=== PATIENT | male | born 1980 | race Caucasian/White ===

== ENCOUNTER 2019-11-04 11:07 | Inpatient (IN) ==
--- NOTE | 2019-11-04 11:38 | Emergency Department Note ---
Impression & Plan Suicide attempt by multiple drug overdose, Anxiety ED Provider Note NAME: DAVE MICHELE AGE: 39 SEX: M : 1980 ARRIVES VIA: Walk-In INFORMANT: Patient, ED PROVIDER(S): Kael Garza MD Chief Complaint: Overdose, anxiety HPI: Patient does state he is presenting status post overdose this morning. The patient took approximately 15 to 20 100 mg Zoloft, 30-40 10 mg melatonin, 1 cup of Clorox and Vicks Vapor. The patient states he vomited essentially immediately. The patient states that he vomited after taking all the substances. Patient was also found in his car with the window down in the garage. The car was on. Patient does admit to trying to hurt himself. The patient is not try to hurt himself since 2008. The patient states he had decreased the. Appetite is been okay. The patient denies any alcohol tobacco or substance use. The patient does see Dr. Corona as an outpatient for psych. Th e patient states that he does not have any access to guns or weapons. 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 ROS: See HPI for pertinent positives and negatives. A total of 10 systems were rev iewed and otherwise negative. Past medical history: See below Surgical history: See below Social history: See below Physical Exam: GENERAL: NAD, non-toxic. Wearing a mask, tolerating secretions. EYE EXAM: Normal conjunctiva. PERRL, no anisocoria and EOM's grossly intact w/o pain. NECK: Supple, no nuchal rigidity, no adenopathy, non-tender. No signs of meningismus. LUNGS: Clear to auscultation. Normal chest wall mechanics. HEART: NSR, no MRG. ABDOMEN: Abdomen soft, non-tender, normo-active bowel sounds, no masses, no rebound or guarding. BACK: No CVA TTP. SKIN: No rashes and no bruising. UPPER EXTREMITIES: Upper extremities are grossly normal. LOWER EXTREMITIES: Grossly normal, no edema. NEURO EXAM: A&O x3, cranial nerves II-XII grossly intact, normal speech, moves all 4 extremities on command w/o issue. Differential diagnoses: Mood disorder, infection, hypoglycemia, electrolyte abnormalities, cardiac sources, intracerebral event, toxicologic, trauma, neurologic, as well as other pathologies. Overdose, toxicologic, infection, hypoglycemia, electrolyte abnormalities, cardiac sources, intracerebral event, neurologic, trauma, as well as other pathologies. Course: Patient was seen and evaluated the bedside. Full history and physical exam was performed. EKG: Indication: Overdose Normal sinus rhythm, rate of 86, normal intervals, normal axis, no obvious arrhythmia. T wave version lead III no ST changes. No significant change from 02/18/2009. Imaging Studies: None Cardiac monitoring: An order was placed for continuous cardiac monitoring. The monitor shows a rate of 96 with sinus rhythm. MDM: Patient does present status post overdose. The patient states he did all this around 830 this morning. Patient states he ingested substances and subsequently vomited. The patient denies any shortness of breath. The patient is awake alert tolerating his secretions and following commands. Patient did have blood work completed along with a carboxyhemoglobin. Of note the patient is not complaining of shortness of breath nonrebreather was not placed at this time especially given 2 hours after onset. The patient is non-stridulous. Patient is handling secretions. Patient had ingested some household bleach but he immediately vomited this. Poison control was contacted. Obs for 6 hours post ingestion to observe for aspiration. If symptoms, consider CXR. Vicks Vapor has essential oils and camphor per poison control, may cause n/v, seizures. Same 4-6 hours obs period. I did speak with the on-call psych case management rn and came to evaluate the patient. Patient did undergo a 6-hour observation post ingestion. Blood work shows normal white count H&H and platelet count. Kidney function is unremarkable. T bili is mildly elevated 1.3 but the patient has no signs of jaundice right upper quadrant pain. Patient does have UDS positive for benzos. Alcohol salicylate Tylenol within normal limits. Patient's carboxyhemoglobin is not elevated. Not requiring nonrebreather. Patient was subsequently admitted to the inpatient psychiatric service. Observation: Patient has PMX of depression and anxiety w/ no pertinent family history . Observation began at 1134 and was necessary in order to rule out, monitor, reassess and mitigate the risk of the patient, ensure their relative safety, and potentially avoid an admission. Upon re-evaluation, observation revealed that the patient could be safely admitted at this time after observation in the emergency department status post ingestion. Patient was feeling well and discharged from observation at 1330. 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 [employer] Feels Safe at Home: Yes Smoking Status: Never smoker Allergies Allergies Allergy/AdvReac Type Severity Reaction Status Date / Time No Known Allergies Allergy Unknown Verified 09/03/05 06:08 Home Meds Home Medications Medication Instructions Recorded Confirmed sertraline [Zoloft] 100 mg PO DAILY 11/04/19 11/04/19 Results & Data (ED) Vital Signs Vital Signs - 24 hr 11/04/19 11:12 11/04/19 11:20 11/04/19 11:47 Temperature 36.3 C L Temperature Source Oral Pulse Rate 96 H Pulse Rate [Left] Pulse Rhythm [Left] Pulse Strength [Left] Respiratory Rate 20 Respiratory Effort / Characteristics Non-Labored Respiratory Depth Normal Respiratory Pattern Regular Blood Pressure 120/86 Blood Pressure [Right Arm] Blood Pressure Mean 97 Blood Pressure Mean [Right Arm] Pulse Oximetry 98 99 Oxygen Delivery Method Room Air Room Air Sepsis Recent Fever Within 48 Hours No Sepsis New/Unexplained Change in Mental Status No Sepsis Action Taken by Nursing No Action Required 11/04/19 11:58 11/04/19 13:44 Temperature Temperature Source Pulse Rate Pulse Rate [Left] 89 88 Pulse Rhythm [Left] Regular Regular Pulse Strength [Left] Normal Respiratory Rate 18 18 Respiratory Effort / Characteristics Non-Labored Non-Labored Respiratory Depth Normal Normal Respiratory Pattern Regular Regular Blood Pressure Blood Pressure [Right Arm] 122/89 125/89 Blood Pressure Mean Blood Pressure Mean [Right Arm] 100 101 Pulse Oximetry 99 98 Oxygen Delivery Method Room Air Room Air Sepsis Recent Fever Within 48 Hours Sepsis New/Unexplained Change in Mental Status Sepsis Action Taken by Assisted Medications Current Medication List: was personally reviewed by me Laboratory Data Attestation: I reviewed the patient's lab results. Result diagrams: 11/04/19 11:43 11/04/19 11:43 Lab Results 11/04/19 11/04/19 11/04/19 Range/Units 11:40 11:40 11:43 WBC 9.43 (4.8-10.8) K/uL RBC 4.81 (4.7-6.1) M/uL Hgb 15.2 (14.0-18.0) g/dL Hct 43.7 (42-52) % MCV 90.9 (80-100) fL MCH 31.6 (25-34) pg MCHC 34.8 (32-36) g/dL RDW Std Deviation 40.6 (36.4-46.3) fL RDW Coeff of Chloé 12.2 (11.5-14.5) % Plt Count 272 (130-400) K/uL MPV 10.8 H (7.4-10.4) fL Immature Gran % (Auto) 0.1 % Neut % (Auto) 86.8 % Lymph % (Auto) 7.1 % Fountain % (Auto) 5.6 % Eos % (Auto) 0.0 % Baso % (Auto) 0.4 % Immature Gran # (Auto) 0.01 (0.00-0.02) K/uL Neut # (Auto) 8.18 H (1.4-6.5) K/uL Lymph # (Auto) 0.67 L (1.2-3.4) K/uL Fountain # (Auto) 0.53 (0.11-0.59) K/uL Eos # (Auto) 0.00 (0-0.5) K/uL Baso # (Auto) 0.04 (0-0.2) K/uL Carboxyhemoglobin % THgb Sodium (136-145) mmol/L Potassium (3.5-5.1) mmol/L Chloride (98-107) mmol/L Carbon Dioxide (21-32) mmol/L Anion Gap (3-11) BUN (7-18) mg/dl Creatinine (0.6-1.4) mg/dl Est Cr Clr Drug Dosing ml/min Est GFR ( Amer) Est GFR (Non-Af Amer) BUN/Creatinine Ratio (10-20) Glucose (70-99) mg/dl Calcium (8.5-10.1) mg/dl Phosphorus (2.5-4.9) mg/dl Magnesium (1.8-2.4) mg/dl Total Bilirubin (0.2-1) mg/dl AST (15-37) U/L ALT (12-78) U/L Alkaline Phosphatase (45-117) U/L Total Protein (6.4-8.2) gm/dl Albumin (3.4-5.0) gm/dl Globulin (2.5-4.0) gm/dl Albumin/Globulin Ratio (0.9-2) TSH (0.300-4.500) uIu/ml Urine Color Dark Yellow Urine Appearance Clear (Clear) Urine pH 5.5 (4.5-7.5) Ur Specific [place] 1.038 H (1.000-1.030) Urine Protein Negative (Negative) Urine Glucose (UA) Negative (Negative) Urine Ketones 1+ H (Negative) Urine Blood Negative (Negative) Urine Nitrite Negative (Negative) Urine Bilirubin Negative (Negative) Urine Urobilinogen Negative (Negative) Ur Leukocyte Esterase Negative (Negative) Salicylates (2.8-20) mg/dl Urine Opiates Screen Neg (Neg) Ur Methadone, Qual Neg (Neg) Acetaminophen (10-30) ug/ml Urine Barbiturates Neg (Neg) Ur Phencyclidine (PCP) Neg (Neg) U Amphetamin/Meth Scrn Neg (Neg) MDMA (Ecstasy) Screen Neg (Neg) U Benzodiazepines Scrn Pos H (Neg) Ur Cocaine Metabolite Neg (Neg) U Marijuana (THC) Screen Neg (Neg) Ethyl Alcohol mg/dL (0-3) mg/dl 11/04/19 11/04/19 11/04/19 Range/Units 11:43 11:43 11:43 WBC (4.8-10.8) K/uL RBC (4.7-6.1) M/uL Hgb (14.0-18.0) g/dL Hct (42-52) % MCV (80-100) fL MCH (25-34) pg MCHC (32-36) g/dL RDW Std Deviation (36.4-46.3) fL RDW Coeff of Chloé (11.5-14.5) % Plt Count (130-400) K/uL MPV (7.4-10.4) fL Immature Gran % (Auto) % Neut % (Auto) % Lymph % (Auto) % [place] % (Auto) % Eos % (Auto) % Baso % (Auto) % Immature Gran # (Auto) (0.00-0.02) K/uL Neut # (Auto) (1.4-6.5) K/uL Lymph # (Auto) (1.2-3.4) K/uL Fountain # (Auto) (0.11-0.59) K/uL Eos # (Auto) (0-0.5) K/uL Baso # (Auto) (0-0.2) K/uL Carboxyhemoglobin % THgb Sodium 139 (136-145) mmol/L Potassium 4.0 (3.5-5.1) mmol/L Chloride 106 (98-107) mmol/L Carbon Dioxide 26 (21-32) mmol/L Anion Gap 7.0 (3-11) BUN 16 (7-18) mg/dl Creatinine 0.93 (0.6-1.4) mg/dl Est Cr Clr Drug Dosing 113.6 ml/min Est GFR ( Amer) 119.4 Est GFR (Non-Af Amer) 103.0 BUN/Creatinine Ratio 16.8 (10-20) Glucose 121 H (70-99) mg/dl Calcium 9.1 (8.5-10.1) mg/dl Phosphorus 3.1 (2.5-4.9) mg/dl Magnesium 2.0 (1.8-2.4) mg/dl Total Bilirubin 1.3 H (0.2-1) mg/dl AST 18 (15-37) U/L ALT 24 (12-78) U/L Alkaline Phosphatase 79 (45-117) U/L Total Protein 8.1 (6.4-8.2) gm/dl Albumin 4.7 (3.4-5.0) gm/dl Globulin 3.4 (2.5-4.0) gm/dl Albumin/Globulin Ratio 1.4 (0.9-2) TSH 0.699 (0.300-4.500) uIu/ml Urine Color Urine Appearance (Clear) Urine pH (4.5-7.5) Ur Specific [place] (1.000-1.030) Urine Protein (Negative) Urine Glucose (UA) (Negative) Urine Ketones (Negative) Urine Blood (Negative) Urine Nitrite (Negative) Urine Bilirubin (Negative) Urine Urobilinogen (Negative) Ur Leukocyte Esterase (Negative) Salicylates < 1.7 L (2.8-20) mg/dl Urine Opiates Screen (Neg) Ur Methadone, Qual (Neg) Acetaminophen < 2 L (10-30) ug/ml Urine Barbiturates (Neg) Ur Phencyclidine (PCP) (Neg) U Amphetamin/Meth Scrn (Neg) MDMA (Ecstasy) Screen (Neg) U Benzodiazepines Scrn (Neg) Ur Cocaine Metabolite (Neg) U Marijuana (THC) Screen (Neg) Ethyl Alcohol mg/dL < 3.0 (0-3) mg/dl 11/04/19 Range/Units 11:43 WBC (4.8-10.8) K/uL RBC (4.7-6.1) M/uL Hgb (14.0-18.0) g/dL Hct (42-52) % MCV (80-100) fL MCH (25-34) pg MCHC (32-36) g/dL RDW Std Deviation (36.4-46.3) fL RDW Coeff of Chloé (11.5-14.5) % Plt Count (130-400) K/uL MPV (7.4-10.4) fL Immature Gran % (Auto) % Neut % (Auto) % Lymph % (Auto) % [place] % (Auto) % Eos % (Auto) % Baso % (Auto) % Immature Gran # (Auto) (0.00-0.02) K/uL Neut # (Auto) (1.4-6.5) K/uL Lymph # (Auto) (1.2-3.4) K/uL [place] # (Auto) (0.11-0.59) K/uL Eos # (Auto) (0-0.5) K/uL Baso # (Auto) (0-0.2) K/uL Carboxyhemoglobin 0.3 % THgb Sodium (136-145) mmol/L Potassium (3.5-5.1) mmol/L Chloride (98-107) mmol/L Carbon Dioxide (21-32) mmol/L Anion Gap (3-11) BUN (7-18) mg/dl Creatinine (0.6-1.4) mg/dl Est Cr Clr Drug Dosing ml/min Est GFR ( Amer) Est GFR (Non-Af Amer) BUN/Creatinine Ratio (10-20) Glucose (70-99) mg/dl Calcium (8.5-10.1) mg/dl Phosphorus (2.5-4.9) mg/dl Magnesium (1.8-2.4) mg/dl Total Bilirubin (0.2-1) mg/dl AST (15-37) U/L ALT (12-78) U/L Alkaline Phosphatase (45-117) U/L Total Protein (6.4-8.2) gm/dl Albumin (3.4-5.0) gm/dl Globulin (2.5-4.0) gm/dl Albumin/Globulin Ratio (0.9-2) TSH (0.300-4.500) uIu/ml Urine Color Urine Appearance (Clear) Urine pH (4.5-7.5) Ur Specific [place] (1.000-1.030) Urine Protein (Negative) Urine Glucose (UA) (Negative) Urine Ketones (Negative) Urine Blood (Negative) Urine Nitrite (Negative) Urine Bilirubin (Negative) Urine Urobilinogen (Negative) Ur Leukocyte Esterase (Negative) Salicylates (2.8-20) mg/dl Urine Opiates Screen (Neg) Ur Methadone, Qual (Neg) Acetaminophen (10-30) ug/ml Urine Barbiturates (Neg) Ur Phencyclidine (PCP) (Neg) U Amphetamin/Meth Scrn (Neg) MDMA (Ecstasy) Screen (Neg) U Benzodiazepines Scrn (Neg) Ur Cocaine Metabolite (Neg) U Marijuana (THC) Screen (Neg) Ethyl Alcohol mg/dL (0-3) mg/dl Administered Medications Discontinued Medications Ondansetron HCl (Zofran Odt) 4 mg PO NOW STA Stop: 11/04/19 13:19 Last Admin: 11/04/19 13:26 Dose: 4 mg Documented by: [id number] Blood Pressure Blood Pressure Findings: Normal blood pressure Discharge Plan Visit Data *Final* Discharge Date/Time: 11/04/19 15:31 Chief Complaint: Overdose (Intentional) Stated Complaint: OVERDOSED ON ZOLOFT,MELATONIN,CLOROX,CAR EXHAUST ED Provider: Kael Garza Discharge Problem: Suicide attempt by multiple drug overdose, Anxiety Patient Disposition: Admitted As Inpatient Discharge Instructions Interventions: ED Discharge Assessment Last Done: 11/04/19 15:31 Discharge Problem: Suicide attempt by multiple drug overdose Qualifiers: Encounter type: initial encounter Qualified Code(s): T50.912A - Poisoning by multiple unspecified drugs, medicaments and biological substances, intentional self-harm, initial encounter
[2019-11-04 12:02] LABS: Basophils # (auto) 0.04 K/uL (0-0.2); Basophils % (auto) 0.4 %; Hematocrit (blood only) 43.7 % (42-52); Hemoglobin 15.2 g/dL (14.0-18.0); Immature Granulocytes # (auto) 0.01 K/uL (0.00-0.02); Immature Granulocytes % (auto) 0.1 %; Lymphocytes # (auto) 0.67 K/uL (1.2-3.4); Lymphocytes % (auto) 7.1 %; Mean Corpuscular Hemoglobin 31.6 pg (25-34); Mean Corpuscular Hgb Conc 34.8 g/dL (32-36); Mean Corpuscular Volume 90.9 fL (80-100); Mean Platelet Volume 10.8 fL (7.4-10.4); Monocytes # (auto) 0.53 K/uL (0.11-0.59); Monocytes % (auto) 5.6 %; Neutrophils # (auto) 8.18 K/uL (1.4-6.5); Neutrophils % (auto) 86.8 %; Platelet Count 272 K/uL (130-400); RDW Coefficient of Variation 12.2 % (11.5-14.5); RDW Standard Deviation 40.6 fL (36.4-46.3); Red Blood Count 4.81 M/uL (4.7-6.1); White Blood Count 9.43 K/uL (4.8-10.8)
[2019-11-04 12:23] LABS: Albumin Level 4.7 gm/dl (3.4-5.0); BUN Creatinine Ratio 16.8 (10-20); Calcium 9.1 mg/dl (8.5-10.1); Creatinine Clr Calc Pharmacy 113.6 ml/min; Est GFR (African American) 119.4
[2019-11-04 12:34] LABS: Albumin Globulin Ratio 1.4 (0.9-2); Bilirubin,Total 1.3 mg/dl (0.2-1); Globulin 3.4 gm/dl (2.5-4.0); Phosphorus 3.1 mg/dl (2.5-4.9); Thyroid Stimulating Hormone 0.699 uIu/ml (0.300-4.500); Total Protein 8.1 gm/dl (6.4-8.2)
[2019-11-04 12:37] LABS: Appearance Urine Clear (Clear); Bilirubin Urine Negative (Negative); Blood Urine Negative (Negative); Color Urine Dark Yellow; Glucose Urine UA Negative (Negative); Ketones Urine 1+ (Negative); Leukocyte Esterase Urine Negative (Negative); Nitrite Urine Negative (Negative); Protein Urine Negative (Negative); Specific Gravity Urine 1.038 (1.000-1.030); Urobilinogen Urine Negative (Negative); pH Urine 5.5 (4.5-7.5)
[2019-11-04 12:38] LABS: Acetaminophen < 2 ug/ml (10-30)
[2019-11-04 12:57] LABS: Salicylate < 1.7 mg/dl (2.8-20)
[2019-11-04 13:16] LABS: Amphetamines+Metham, Urine Neg (Neg); Barbiturates, Urine Neg (Neg); Benzodiazepine, Urine Pos (Neg); Cocaine, Urine Neg (Neg); MDMA (Ecstacy), Urine Neg (Neg); Methadone, Urine Neg (Neg); Opiate, Urine Neg (Neg); Phencyclidine, Urine Neg (Neg)
[2019-11-04] MEDS ORDERED: ONDANSETRON 4 MG OD TAB PO STA (13:18)
[2019-11-04 13:45] VITALS: O2SAT 98
--- NOTE | 2019-11-04 13:57 | Electrocardiogram Report ---
Test Reason : Blood Pressure : / mmHG Vent. Rate : 086 BPM Atrial Rate : 086 BPM P-R Int : 168 ms QRS Dur : 102 ms QT Int : 344 ms P-R-T Axes : 040 037 015 degrees QTc Int : 411 ms Normal sinus rhythm Normal ECG When compared with ECG of 18-NOV-2008 08:55, No significant change was found Confirmed by Shekhar Malin ([id number]) on 11/04/2019 1:57:06 PM Referred By: REFERRED SELF Confirmed By:Shekhar Malin
[2019-11-04] MEDS ORDERED: MAGNESIUM HYDROXIDE SUSP 30 ML UDC PO PRN (14:12)
[2019-11-04] MEDS ORDERED: BISMUTH SUBSALICYLATE PER ML OMNICELL CHARGE PO PRN (14:12)
[2019-11-04] MEDS ORDERED: ALUMINUM/MAGNESIUM SUSP 30 ML UDC PO PRN (14:12)
[2019-11-04] MEDS ORDERED: ACETAMINOPHEN 325 MG TAB PO PRN (14:12)
[2019-11-04] MEDS ORDERED: SODIUM CHLORIDE 0.65% NA SOLN 45 ML (OCEAN) PRN (14:12)
--- NOTE | 2019-11-05 09:44 | History & Physical ---
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 His symptoms have worsened over the past month, triggered by the coronavirus pandemic and resulting restrictions/societal changes. He struggles with loss of routine and uncertainty, and although symptoms had been worsening steadily for the past month, he did not contact the outpatient clinic or seek out psychotherapy. He reports feeling that he should have been able to deal with it himself, and has placed a lot of pressure on himself to handle his symptoms on his own. His sertraline is being held due to overdose with ongoing GI effects, but will resume it tomorrow with a plan to titrate to an effective (likely higher) dose. He will also need a family meeting with his , and referral for individual psychotherapy. Inpatient treatment is medically necessary due to the severity of his symptoms and risk for suicide if discharged. (1) Suicide attempt by multiple drug overdose: 11/04 -patient remains slightly tachycardic, although EKG on presentation was normal. Continue to monitor and encourage fluids. -Patient was able to tolerate food today, but has mild nausea. Continue to hold sertraline. -UDS positive for benzodiazepines, but he denies taking benzodiazepines, and has not been prescribed them per PDMP. Follow-up on confirmatory results when available. -Continue to explore the evolution of his symptoms that led to his suicide attempt, to assist in developing coping strategies and safety plan. -Family meeting with . Encounter type: initial encounter Qualified Code(s): T50.912A - Poisoning by multiple unspecified drugs, medicaments and biological substances, intentional self-harm, initial encounter (2) Depression: 11/04 -sertraline has been effective in the past, so will resume it tomorrow, providing nausea has resolved. Will start with 50 mg daily, and titrate to a goal dose of 150 or 200 mg daily. -Encourage patient to attend and participate in groups and therapy, work on healthy coping skills and discharge safety plan. -Refer for individual psychotherapy; he has seen multiple therapists at some point in the past, and will think about his preferences (whether he would like to return to a previous therapist or see someone new). -Patient reports benefit from routine, and has made efforts to maintain a structured schedule at home. Continue to explore this is part of discharge planning. -Offer hydroxyzine as needed for sleep. Depression Type: major depressive disorder Major depression recurrence: recurrent Active/Remission status: currently active Major depression episode severity: severe Psychotic features: without psychotic features Qualified Code(s): F33.2 - Major depressive disorder, recurrent severe without psychotic features (3) Anxiety: 11/04 -resume SSRI as above. Offer hydroxyzine as needed. Work on behavioral techniques for managing anxiety. 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 Chief Complaint " Not great". History of Present Illness Patient is well-known to me as I have been seeing him in the outpatient clinic since 2012. He has a history of severe recurrent depression starting when he was a freshman in college, with episodes of depression typically occurring during life transitions. He has a history of suicide attempts and hospitali zations, last in 2008. His depression has been in remission for about the past 10 years, so in 2017 he was tapered off of oxcarbazepine, and continued on sertraline 100 mg daily. We were considering tapering him off the sertraline as well this spring, but at his last appointment 1 month ago, he reported a slight increase in anxiety due to the coronavirus pandemic, so the SSRI was continued for the time being. He has not been in therapy for years, due to symptom remission. His called the outpatient clinic yesterday reporting that he had overdosed in a suicide attempt, and was directed to take him to the ER immediately. He presented to the ER and reported an intentional overdose around 8:30 AM on 15-20 sertraline 100 mg tabs, 30-40 melatonin 10 mg tabs, and approximately 1 cup of C lorox and Vicks vapor. He vomited immediately after the ingestion, and then went and sat in his car in a closed garage with the engine on in another attempt to harm himself. EKG was normal sinus rhythm, rate 86, and he had continuous cardiac monitoring in the ER. Poison control was contacted and recommended observation for 6 hours to monitor for aspiration, nausea and vomiting, or seizures. He has had episodic mild tachycardia. CBC, CMP, and TSH were unremarkable. UA notable for elevated specific gravity and 1+ ketones, and UDS positive for benzodiazepines, although he denied ingesting benzodiazepines. Per PDMP, he has no history of feeling any controlled substances. He reported worsening depression since the coronavirus pandemic and associated restrictions. He is been worrying about possibly losing his job at [employer], a sense of dread about what the future holds, racing thoughts, and poor sleep. He reported having thoughts of suicide but felt able to manage them until the morning of his overdose, when he woke up and had racing, obsessive thoughts and impulsively took the overdose and then attempted carbon monoxide poisoning to end his life. He said he was sitting in his car for approximately 30 minutes before his and son found him. He denied any substance use other than the overdose. He agreed to voluntary hospitalization. On my assessment, he reports mood and anxiety have worsened over the past month, exacerbated by his realization that all of the changes related to the pandemic will likely continue for some time, and uncertainty about the future/concerns about job security. His sleep has been disrupted, waking up feeling anxious with a sense of dread, and he has lost approximately 15 pounds. He endorses feelings of guilt, as he does not feel he should be struggling, and due to attempting suicide, which he states he promised his he would never do again. He reports sad mood, rumination, racing obsessive thoughts, increasingly negative thoughts "everything is pessimistic," and constant sense of anxiety "about what's going on in the world," and morning the loss of "normal life." He says he realized about 2 weeks ago that he was depressed, talked to his about it, and said he "really wanted to fight it, I know everyone else is dealing with this too." He started having fleeting suicidal thoughts over the past 2 weeks, but denies he had any plan or intent to act on these thoughts. Yesterday morning he says he woke up and "I couldn't handle it, couldn't deal with his uncertainty," so took the overdose impulsively on the medications he had available. He says he drank the Vicks vapor because it was there, and says he cannot explain why he ingested bleach, other than he had done that in the past as a suicide attempt and "it was just automatic." He states he did not think that he would , but did think that the ingestion might harm him. He thinks that he did it in response to desperate need to escape and feeling "I can't do this anymore." He says he does not know why he then went and sat in his car with the engine running in the closed garage, stating he had never before thought about harming himself this way, but knew a person who from carbon monoxide poisoning. He says the episode now seems "surreal, incredibly dangerous, and not smart." He says "part of me is thankful I am still alive, but the issues are still there." He states he is a person who likes routine, and he and his family had been sticking to a daily routine where he and his both worked from home, shared home schooling duties with her children, they will went for a family walk daily, and were eating healthy meals. He is worried about missing work, stating the semester is ending and his grades are due at the end of next week. He denies symptoms of psychosis and allen. Past Psychiatric History Previous Psych History: Previous diagnoses include recurrent severe depression without psychosis, SHELLEY, and social phobia. History of multiple episodes of depression starting at age 18 when he was a freshman in college. Last episode of depression was approximately 10 years ago. Current Psychiatric Diagnosis: Depression Outpatient Services: Psychiatrist Dr. Corona at [facility] since 2012; prior to that saw Dr. Acosta and DANIELLE Bermudez. No therapist currently. Previously saw Gonzalo Felix and Deniz Spence at [facility] PCP: Dr. Harden Previous Psych Admissions: This is his sixth hospitalization. First hospitalization in 1999 at [facility] 2005 at [facility] after an overdose. 2008 at [facility] after an overdose on Clorox and clonazepam (initially treated in the ICU). Again hospitalized in 2008 at [facility] in [place], for an overdose that occurred immediately upon discharge from the previous hospitalization. He then participated in a 6-week intensive outpatient program in [place]. Do You Have Access To A Gun?: No History of Previous Suicide Attempt: Yes Describe Attempts in the Past: Overdose X2 in 2008 (1 of which required ICU hospitalization); 2 others in 2004, 2005? Past Medication Trials: Oxcarbazepine and sertraline -was on this combination for many years with symptom remission, so oxcarbazepine was discontinued in 2018. Paroxetine ([id number]) Trazodone -caused muscle twitches and bad dreams Clonazepam Past Head Trauma/Neuro History History of Concussion/Seizure: Yes (2 concussions in high school from sports, no loss of consciousness) Allergies Allergy/AdvReac Type Severity Reaction Status Date / Time No Known Allergies Allergy Unknown Verified 09/03/05 06:08 Home Medications Home Medications Medication Instructions Recorded Confirmed Type sertraline [Zoloft] 100 mg PO DAILY 11/04/19 11/04/19 History Family History Family History of: Depression (Father) and Alcoholism/Drug Abuse (Paternal grandfather) Alcohol History Hx of Alcohol Use Over the Past 12 Months: No AUDIT Total Score: 1 Rare alcohol use, no history of abuse/misuse. Per outpatient records, remote incident of his calling 911 after becoming sick while drinking wine, which triggered a CYS investigation. He stated this was an accident and that he has poor tolerance for wine, and it has never recurred. Smoking Use Have You Smoked or Used Tobacco Products in the Last 30 Days: No Smoking Status: Never smoker Substance History Hx of Prescription Med Misuse Over the Past 12 Months: No Hx of Over the Counter Med Misuse Over the Past 12 Months: No Hx of Inhalent Misuse Over the Past 12 Months: No Hx of Organic Substance Use Over the Past 12 Months: No Hx of Illegal Substances/Street Drug Use Over Past 12 Months: No Problems as a Result of Past Substance Use: None Identified Personal History Living Arrangements: Home Living Arrangements Comments: With and children in [place]. Childhood: Raised by both parents near [place]. 1 younger sister. Good relationship with family. Described himself as shy in childhood. 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) Marital Status: Number Of Children: 2 sons Beliefs That Will Affect Care: None Current Legal Problems: No Hx Traumatic Life Events: No Patient History Medical History (Updated 11/05/19 @ 11:24 by Trinidad Corona MD) Anxiety Depression Surgical History (Updated 11/04/19 @ 11:45 by Kael Garza MD) No pertinent past surgical history Social History (Updated 11/04/19 @ 11:45 by Kael Garza MD) Preferred Language: Grenadian Communication Ability: Effective Hearing Ability: Normal Beliefs That Will Affect Care: None marital status: current occupational status: employed 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 Feels Safe at Home: Yes Smoking Status: Never smoker Review of Systems Review of Systems: All systems reviewed & are unremarkable except as noted in HPI & below Mild nausea, but was able to eat breakfast, and no vomiting since yesterday. Mild headache. Physical Exam Psychiatric: Orientation: alert, oriented x 3 and cooperative Apperance: appropriately dressed and appeared stated age Well-nourished well-developed white male appearing his stated age. Dressed in shorts and a T-shirt, wearing glasses. Hair is unkempt and hostile. Seated in no acute distress. Calm and cooperative with the interview. Eye Contact: + fair eye contact Motor Behavior: steady gait and station and no abnormal motor movements Speech: normal rate/rhythm/volume of speech Affect: + depressed affect, + anxious affect, + constricted affect and mood congruent with affect Mood: + depressed mood and + anxious mood Thought Process: goal directed thought process Thought Content: + cognitive distortions, + hopelessness, + worthlessness and + guilt But admits to polysubstance overdose and attempted carbon monoxide poisoning yesterday, and suicidal thoughts for the past 2 weeks. Homicidal Thoughts: denies homicidal thoughts Hallucinations: no auditory hallucinations and no visual hallucinations Cognition: recent memory grossly intact, remote memory grossly intact, attention grossly intact and language grossly intact Estimated Intelligence: consistent with education level Insight: + fair insight Judgement: + fair judgement Vital Signs (Past 24 Hours): Last Vital Signs Temp 36.6 C 11/05/19 06:00 Pulse 109 H 11/05/19 06:39 Resp 18 11/05/19 06:00 BP 124/78 11/05/19 06:39 Pulse Ox 98 11/04/19 16:04 Exam Statement: A physical exam was performed in the ER prior to admission to the unit by Dr. Kael Garza. I accept that physical as correct/medical clearance for the inpatient physical exam. Results & Data ([facility]) Laboratory Results Laboratory Results - last 24 hr 11/04/19 11/04/19 11/04/19 11:40 11:40 11:40 WBC RBC Hgb Hct MCV MCH MCHC RDW Std Deviation RDW Coeff of Chloé Plt Count MPV Immature Gran % (Auto) Neut % (Auto) Lymph % (Auto) [place] % (Auto) Eos % (Auto) Baso % (Auto) Immature Gran # (Auto) Neut # (Auto) Lymph # (Auto) [place] # (Auto) Eos # (Auto) Baso # (Auto) Carboxyhemoglobin Sodium Potassium Chloride Carbon Dioxide Anion Gap BUN Creatinine Est Cr Clr Drug Dosing Est GFR ( Amer) Est GFR (Non-Af Amer) BUN/Creatinine Ratio Glucose Calcium Phosphorus Magnesium Total Bilirubin AST ALT Alkaline Phosphatase Total Protein Albumin Globulin Albumin/Globulin Ratio TSH Urine Color Dark Yellow Urine Appearance Clear Urine pH 5.5 Ur Specific [place] 1.038 H Urine Protein Negative Urine Glucose (UA) Negative Urine Ketones 1+ H Urine Blood Negative Urine Nitrite Negative Urine Bilirubin Negative Urine Urobilinogen Negative Ur Leukocyte Esterase Negative Salicylates Urine Opiates Screen Neg Ur Methadone, Qual Neg Acetaminophen Urine Barbiturates Neg Ur Phencyclidine (PCP) Neg U Amphetamin/Meth Scrn Neg MDMA (Ecstasy) Screen Neg U OH-Alprazolam Confrm Pending U Benzodiazepines Scrn Pos H 7-Amino Clonazepam Pending Ur Nordiazepam Confirm Pending U OH-ethylflurazepam Pending U Lorazepam Cnf GC/MS Pending U Oxazepam Confm GC/MS Pending Ur Temazepam Confirm Pending U OH-Triazolam Confirm Pending U OH-Midazolam Confirm Pending Ur Cocaine Metabolite Neg U Marijuana (THC) Screen Neg Drug Screen Comment Pending Ethyl Alcohol mg/dL 11/04/19 11/04/19 11/04/19 11:43 11:43 11:43 WBC 9.43 RBC 4.81 Hgb 15.2 Hct 43.7 MCV 90.9 MCH 31.6 MCHC 34.8 RDW Std Deviation 40.6 RDW Coeff of Chloé 12.2 Plt Count 272 MPV 10.8 H Immature Gran % (Auto) 0.1 Neut % (Auto) 86.8 Lymph % (Auto) 7.1 [place] % (Auto) 5.6 Eos % (Auto) 0.0 Baso % (Auto) 0.4 Immature Gran # (Auto) 0.01 Neut # (Auto) 8.18 H Lymph # (Auto) 0.67 L [place] # (Auto) 0.53 Eos # (Auto) 0.00 Baso # (Auto) 0.04 Carboxyhemoglobin Sodium 139 Potassium 4.0 Chloride 106 Carbon Dioxide 26 Anion Gap 7.0 BUN 16 Creatinine 0.93 Est Cr Clr Drug Dosing 113.6 Est GFR ( Amer) 119.4 Est GFR (Non-Af Amer) 103.0 BUN/Creatinine Ratio 16.8 Glucose 121 H Calcium 9.1 Phosphorus 3.1 Magnesium 2.0 Total Bilirubin 1.3 H AST 18 ALT 24 Alkaline Phosphatase 79 Total Protein 8.1 Albumin 4.7 Globulin 3.4 Albumin/Globulin Ratio 1.4 TSH 0.699 Urine Color Urine Appearance Urine pH Ur Specific [place] Urine Protein Urine Glucose (UA) Urine Ketones Urine Blood Urine Nitrite Urine Bilirubin Urine Urobilinogen Ur Leukocyte Esterase Salicylates < 1.7 L Urine Opiates Screen Ur Methadone, Qual Acetaminophen < 2 L Urine Barbiturates Ur Phencyclidine (PCP) U Amphetamin/Meth Scrn MDMA (Ecstasy) Screen U OH-Alprazolam Confrm U Benzodiazepines Scrn 7-Amino Clonazepam Ur Nordiazepam Confirm U OH-ethylflurazepam U Lorazepam Cnf GC/MS U Oxazepam Confm GC/MS Ur Temazepam Confirm U OH-Triazolam Confirm U OH-Midazolam Confirm Ur Cocaine Metabolite U Marijuana (THC) Screen Drug Screen Comment Ethyl Alcohol mg/dL 11/04/19 11/04/19 11:43 11:43 WBC RBC Hgb Hct MCV MCH MCHC RDW Std Deviation RDW Coeff of Chloé Plt Count MPV Immature Gran % (Auto) Neut % (Auto) Lymph % (Auto) [place] % (Auto) Eos % (Auto) Baso % (Auto) Immature Gran # (Auto) Neut # (Auto) Lymph # (Auto) [place] # (Auto) Eos # (Auto) Baso # (Auto) Carboxyhemoglobin 0.3 Sodium Potassium Chloride Carbon Dioxide Anion Gap BUN Creatinine Est Cr Clr Drug Dosing Est GFR ( Amer) Est GFR (Non-Af Amer) BUN/Creatinine Ratio Glucose Calcium Phosphorus Magnesium Total Bilirubin AST ALT Alkaline Phosphatase Total Protein Albumin Globulin Albumin/Globulin Ratio TSH Urine Color Urine Appearance Urine pH Ur Specific [place] Urine Protein Urine Glucose (UA) Urine Ketones Urine Blood Urine Nitrite Urine Bilirubin Urine Urobilinogen Ur Leukocyte Esterase Salicylates Urine Opiates Screen Ur Methadone, Qual Acetaminophen Urine Barbiturates Ur Phencyclidine (PCP) U Amphetamin/Meth Scrn MDMA (Ecstasy) Screen U OH-Alprazolam Confrm U Benzodiazepines Scrn 7-Amino Clonazepam Ur Nordiazepam Confirm U OH-ethylflurazepam U Lorazepam Cnf GC/MS U Oxazepam Confm GC/MS Ur Temazepam Confirm U OH-Triazolam Confirm U OH-Midazolam Confirm Ur Cocaine Metabolite U Marijuana (THC) Screen Drug Screen Comment Ethyl Alcohol mg/dL < 3.0 Current Inpatient Medications Current Inpatient Medications: Current Inpatient Medications Acetaminophen (Tylenol) 650 mg PO Q4H PRN PRN Reason: Headache or Minor Fever Stop: 12/04/19 14:11 Al Hydrox/Mg Hydrox/Simethicone (Maalox) 30 ml PO Q4H PRN PRN Reason: GI Upset Stop: 12/04/19 14:11 Bismuth Subsalicylate (Kaopectate) 15 ml PO PRN PRN PRN Reason: Loose Stool Stop: 12/04/19 14:11 Hydroxyzine HCl (Vistaril) 50 mg PO HSZ PRN PRN Reason: Insomnia Stop: 12/04/19 14:11 Hydroxyzine HCl (Vistaril) 25 mg PO Q4H PRN PRN Reason: Anxiety Stop: 12/04/19 14:11 Magnesium Hydroxide (Milk Of Magnesia) 30 ml PO DAILY PRN PRN Reason: Constipation Stop: 12/04/19 14:11 Sodium Chloride ([place] Nasal) 1 - 2 sprays NA PRN PRN PRN Reason: Nasal Dryness/Congestion Stop: 12/04/19 14:11
[2019-11-06] MEDS ORDERED: SERTRALINE HCL 50 MG TABLET PO SCH (09:00)
[2019-11-06] MEDS ORDERED: ARIPiprazole 5 MG TAB PO STA (15:32)
[2019-11-06 15:49] LABS: 7-Aminoclonaz, Confirm NEGATIVE ng/mL (<25); Hydro-Alp Ur, GC/MS NEGATIVE ng/mL (<25); Hydroxyethylflurazepam, Conf NEGATIVE ng/mL (<50); Hydroxymidazolam Ur, GC/MS NEGATIVE ng/mL (<50); Hydroxytriazolam NEGATIVE ng/mL (<50); Lorazepam, Ur GC/MS NEGATIVE ng/mL (<50); Nordiazepam, Confirm NEGATIVE ng/mL (<50); Oxazepam Ur, GC/MS NEGATIVE ng/mL (<50); Temazepam, Confirm NEGATIVE ng/mL (<50)
--- NOTE | 2019-11-06 15:52 | Psychiatric Progress Note ---
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 His symptoms have worsened over the past month, triggered by the coronavirus pandemic and resulting restrictions/societal changes. He struggles with loss of routine and uncertainty, and although symptoms had been worsening steadily for the past month, he did not contact the outpatient clinic or seek out psychotherapy. He reports feeling that he should have been able to deal with it himself, and has placed a lot of pressure on himself to handle his symptoms on his own. His sertraline is being held due to overdose with ongoing GI effects, but will resume it tomorrow with a plan to titrate to an effective (likely higher) dose. He will also need a family meeting with his , and referral for individual psychotherapy. Inpatient treatment is medically necessary due to the severity of his symptoms and risk for suicide if discharged. The patient's sertraline was held on the day of admission and was reinstituted the following day at 50 mg a day. The patient's laboratory data is essentially within normal limits, and we will resume sertraline 100 mg daily, the patient's most recent previous outpatient dose. The plan is to titrate the patient's dose of sertraline from 100 mg a day up to 150 or even 200 mg a day, gradually as tolerated. We also discussed the addition of an "adjunct" medication. He notes that in the past he has taken Wellbutrin, but indicates that this worsened his anxiety, and he feels that anxiety may be a larger problem for him than depression. He may benefit from a low-dose of aripiprazole, which not only helped improve his mood but may also help with anxiety. We are also considering possibility of adding buspirone as an anxiolytic. (1) Suicide attempt by multiple drug overdose: 11/04 -patient remains slightly tachycardic, although EKG on presentation was normal. Continue to monitor and encourage fluids. -Patient was able to tolerate food today, but has mild nausea. Continue to hold sertraline. -UDS positive for benzodiazepines, but he denies taking benzodiazepines, and has not been prescribed them per PDMP. Follow-up on confirmatory results when available. -Continue to explore the evolution of his symptoms that led to his suicide attempt, to assist in developing coping strategies and safety plan. -Family meeting with . 11/05 -The patient's vital signs are stable. His laboratory data is essentially within normal limits. Sertraline was reintroduced today at a dose of 50 mg a day, and it will be increased back to 100 mg a day starting tomorrow. -I have offered the patient a trial dose of aripiprazole 2.5 mg daily as an adjunct for sertraline and, also, possibly to assist with his obsessive tendency to "catastrophize" and, also, as a possible anxiolytic. Material risks and anticipated benefits of aripiprazole reviewed with the patient. He asked several questions and indicated understanding. -The patient reports that he is not currently experiencing any suicidal thoughts and has not had any since admission. Instead, he notes that his thoughts about suicide are primarily related to embarrassment and shame. He has been thinking about the fact (with input from his ) about the fact that he might have left her alone at the age of 40 with 2 young children and no partner. He also is considering the fact that it is entirely possible that he might of , and that 1 of the sons may have been the one who discovered him. (In fact, it was the 12-year-old son who discovered the patient in the process of attempting suicide.) -Self-esteem seems to be a central issue, and the patient makes frequent self depreciating comments. This may be a function of his depression, but it seems fairly clear that he lacks self-confidence and has trouble identifying his own strengths. This is an issue that we will look at and individual and, as indicated, group therapies during the stay. (2) Depression: 11/04 -sertraline has been effective in the past, so will resume it tomorrow, providing nausea has resolved. Will start with 50 mg daily, and titrate to a goal dose of 150 or 200 mg daily. -Encourage patient to attend and participate in groups and therapy, work on healthy coping skills and discharge safety plan. -Refer for individual psychotherapy; he has seen multiple therapists at some point in the past, and will think about his preferences (whether he would like to return to a previous therapist or see someone new). -Patient reports benefit from routine, and has made efforts to maintain a structured schedule at home. Continue to explore this is part of discharge planning. -Offer hydroxyzine as needed for sleep. (3) Anxiety: 11/04 -resume SSRI as above. Offer hydroxyzine as needed. Work on behavioral techniques for managing anxiety. 11/05 -as above, aripiprazole is being offered to test dose to guidance director the patient's initial response and tolerance. Other options include the addition of buspirone or low-dose quetiapine. 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 Review of Systems Sleep Information Total Hours of Sleep: 6.5 Sleep Comments: pt on q-15 minute checks Meal Information Percent Meal Consumed - Breakfast: 100 Percent Meal Consumed - Lunch: 100 Percent Meal Consumed - Dinner: 100 Subjective Subjective Patient was seen & assessed and interval progress reviewed with treatment team. I met individually with the patient in order to assess his current mental status, evaluate his response to treatment, coordinate any necessary change in the patient's treatment regimen with the patient, and address issues and concerns that may arise. The patient began by explaining that he was "really thrown off balance" by the changes in his routine that became necessary as part of the current safety measures associated with the COVID-19. Specifically, he notes that he has never been able to handle abrupt changes in routine, and is a self described "creature of habit," that has difficulty when things change, particularly when he finds himself in a comfortable, familiar, relaxed set of circumstances and something occurs that interferes with this. 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 As the COVID-19 crisis continues, the patient became more concerned about the his job security, enrollment at [employer], of the future of [employer], the future of the [facility] [employer], etc. He notes that the more he ruminated about these concerns the more anxious and, eventually, the more depressed he became. He notes that he disclosed to his several weeks ago that he felt that he w as beginning to experience the feelings that he had had in the past --feelings that on several past occasions had included symptoms of depression, anxiety, and suicidality that had led to previous psychiatric hospitalizations, as well as previous suicide attempts. The patient's perception was that his 's response was not to express concerns about him but, instead, to express her reluctance to "go through" what she had gone through with him during previous episodes of depression. Patient notes that he has made several suicide attempts in the past, including one when he was in college, another one during graduate school in 2005, and 2 subsequent suicide attempts in 2008, one within several days after being discharged from the behavioral health unit on 3 . In each of these instances, the patient engaged in behaviors that he expected to be lethal, and did not notify others, and on at least 3 occasions, including the most recent suicide attempt that precipitated the current admission, he had consumed liquid bleach. He notes that at the time of his suicide attempt earlier this week he felt "trapped" in a cycle of worry about the future, his ability to stay employed, the loss of the relative stability of the past 10 or 11 years, disruption of a job that he greatly enjoys, and mounting fears that, somehow, he would end up unemployed and have to "start over again" without an opportunity for reasonable reemployment. He notes that the decision to overdose was impulsive and he tearfully notes that he did not consider the effect that his might have on his and their two sons, ages 10 and 12. In fact, it was the 12-year-old son who discovered the patient in the garage as he attempted to complete suicide through carbon monoxide poisoning, after taking an overdose of sertraline and melatonin, and after drinking bleach. When asked to consider whether he was angry at his , acknowledges that there is has been a somewhat stormy relationship and that in many ways they are "opposites," with the patient concerning himself to be more passive and shy, and his being "more like [his] mother" and that she is decisive, blunt, and "no nonsense." He acknowledges that at times he resents her forcefulness, and he recognizes that, at times, she is put off by his past 70 and his difficulty adjusting to change. We reviewed symptoms of obsessive-compulsive disorder and obsessive-compulsive personality disorder. He does not endorse symptoms of OCD, but he does acknowledge that he tends to be an individual who finds even minor changes in his daily routine to alter his sense of equilibrium. Also, the patient notes that his father has a history of depression and, possibly, anxiety, and both of his sons are treated with Paxil for depression and/or anxiety. Physical Exam Psychiatric Orientation: alert, oriented x 3 and cooperative Apperance: appropriately dressed, appropriately groomed and appeared stated age Eye Contact: + fair eye contact Motor Behavior: steady gait and station Speech: normal rate/rhythm/volume of speech Affect: + depressed affect and + tearful affect Mood: + depressed mood I am feeling better. Now I am more embarrassed than anything." Thought Process: goal directed thought process, linear/logical thought process and + circumstantial thought process Thought Content: reality based without delusions The patient is able to recognize that many of his fears are unreasonable, such as the fear that somehow [employer] will end up closing for lack of body Suicidal Thoughts: denies suicidal thoughts That he has not had suicidal thoughts since arriving at the hospital. Prior to admission, his suicidal thoughts were fleeting. . Homicidal Thoughts: denies homicidal thoughts Hallucinations: no auditory hallucinations Cognition: recent memory grossly intact, remote memory grossly intact, attention grossly intact and language grossly intact Estimated Intelligence: + above average estimated intelligence Insight: + fair insight Judgement: + fair judgement Vital Signs (Past 24 Hours) Last Vital Signs Temp 36.7 C 11/06/19 07:02 Pulse 88 11/06/19 07:03 Resp 18 11/06/19 07:02 BP 118/84 11/06/19 07:03 Pulse Ox 98 11/04/19 16:04 Results & Data ([facility]) Current Inpatient Medications Current Inpatient Medications: Current Inpatient Medications Acetaminophen (Tylenol) 650 mg PO Q4H PRN PRN Reason: Headache or Minor Fever Stop: 12/04/19 14:11 Al Hydrox/Mg Hydrox/Simethicone (Maalox) 30 ml PO Q4H PRN PRN Reason: GI Upset Stop: 12/04/19 14:11 Bismuth Subsalicylate (Kaopectate) 15 ml PO PRN PRN PRN Reason: Loose Stool Stop: 12/04/19 14:11 Hydroxyzine HCl (Vistaril) 50 mg PO HSZ PRN PRN Reason: Insomnia Stop: 12/04/19 14:11 Hydroxyzine HCl (Vistaril) 25 mg PO Q4H PRN PRN Reason: Anxiety Stop: 12/04/19 14:11 Magnesium Hydroxide (Milk Of Magnesia) 30 ml PO DAILY PRN PRN Reason: Constipation Stop: 12/04/19 14:11 Sertraline HCl (Zoloft) 50 mg PO QAM KOSTA Stop: 12/06/19 08:59 Last Admin: 11/06/19 08:24 Dose: 50 mg Documented by: Sodium Chloride ([place] Nasal) 1 - 2 sprays NA PRN PRN PRN Reason: Nasal Dryness/Congestion Stop: 12/04/19 14:11 Mental Health & Subst Abuse Tx Psychiatrist [facility] Date of Appointment with Psychiatrist: 11/12/19 Time of Appointment with Psychiatrist: 2:30 pm Therapist Name of Therapist: Elia Ernst Therapist's Date of Therapist Appointment: 11/10/19 Time of Therapist Appointment: 3:00 pm Therapy Appointment Comment: Sign up for patient portal- activate portal- Activation Code: [id number] Parts Interpreter Name of Parts Interpreter: None Post Discharge Appointments Primary Care Physician Name Of Family Doctor: Megan Harden Primary Care Provider Appointment Comment: Please follow up as needed Contact Information Discharge Discharge Address: [address] [place] [address] (1) Suicide attempt by multiple drug overdose Encounter type: initial encounter Qualified Code(s): T50.912A - Poisoning by multiple unspecified drugs, medicaments and biological substances, intentional self-harm, initial encounter (2) Depression Depression Type: major depressive disorder Major depression recurrence: recurrent Active/Remission status: currently active Major depression episode severity: severe Psychotic features: without psychotic features Qualified Code(s): F33.2 - Major depressive disorder, recurrent severe without psychotic features
[2019-11-07] MEDS: SERTRALINE HCL 100 MG TABLET PO SCH (08:39)
[2019-11-07] MEDS ORDERED: ARIPiprazole 5 MG TAB PO ONE (09:00)
--- NOTE | 2019-11-07 14:32 | Psychiatric Progress Note ---
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 His symptoms have worsened over the past month, triggered by the coronavirus pandemic and resulting restrictions/societal changes. He struggles with loss of routine and uncertainty, and although symptoms had been worsening steadily for the past month, he did not contact the outpatient clinic or seek out psychotherapy. He reports feeling that he should have been able to deal with it himself, and has placed a lot of pressure on himself to handle his symptoms on his own. His sertraline is being held due to overdose with ongoing GI effects, but will resume it tomorrow with a plan to titrate to an effective (likely higher) dose. He will also need a family meeting with his , and referral for individual psychotherapy. Inpatient treatment is medically necessary due to the severity of his symptoms and risk for suicide if discharged. The patient's sertraline was held on the day of admission and was reinstituted the following day at 50 mg a day. The patient's laboratory data is essentially within normal limits, and we will resume sertraline 100 mg daily, the patient's most recent previous outpatient dose. The plan is to titrate the patient's dose of sertraline from 100 mg a day up to 150 or even 200 mg a day, gradually as tolerated. We also discussed the addition of an "adjunct" medication. He notes that in the past he has taken Wellbutrin, but indicates that this worsened his anxiety, and he feels that anxiety may be a larger problem for him than depression. He may benefit from a low-dose of aripiprazole, which not only helped improve his mood but may also help with anxiety. We are also considering possibility of adding buspirone as an anxiolytic. Reviewed above, agree with titration of Zoloft and adjunctive Abilify. Will increase Zoloft tomorrow. Added fasting labs for metabolic baseline for atypical. 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 Review of Systems Sleep Information Total Hours of Sleep: 7 Sleep Comments: pt on q-15 minute checks Meal Information Percent Meal Consumed - Breakfast: 100 Percent Meal Consumed - Lunch: 80 Percent Meal Consumed - Dinner: 100 Subjective Subjective Patient was seen & assessed and interval progress reviewed with nursing and social work. States that he is feeling some better, realizes what he has to look forward too. Unclear how "got to that point" in his head. Tolerating med restart and Abilify, dose just increased this am. Physical Exam Psychiatric Orientation: alert Apperance: appropriately dressed and appropriately groomed Eye Contact: + fair eye contact Motor Behavior: no abnormal motor movements Speech: normal rate/rhythm/volume of speech Affect: + depressed affect Mood: + depressed mood Thought Process: linear/logical thought process Thought Content: reality based without delusions Suicidal Thoughts: denies suicidal thoughts Homicidal Thoughts: denies homicidal thoughts Hallucinations: no auditory hallucinations and no visual hallucinations Cognition: attention grossly intact Estimated Intelligence: consistent with education level Insight: + limited insight Judgement: + limited judgement Vital Signs (Past 24 Hours) Last Vital Signs Temp 36.6 C 11/07/19 06:58 Pulse 96 H 11/07/19 07:00 Resp 16 11/07/19 06:58 BP 116/81 11/07/19 07:00 Pulse Ox 98 11/04/19 16:04 Results & Data ([facility]) Laboratory Results Laboratory Results - last 24 hr 11/04/19 11:40 U OH-Alprazolam Confrm NEGATIVE 7-Amino Clonazepam NEGATIVE Ur Nordiazepam Confirm NEGATIVE U OH-ethylflurazepam NEGATIVE U Lorazepam Cnf GC/MS NEGATIVE U Oxazepam Confm GC/MS NEGATIVE Ur Temazepam Confirm NEGATIVE U OH-Triazolam Confirm NEGATIVE U OH-Midazolam Confirm NEGATIVE Drug Screen Comment SEE NOTE Current Inpatient Medications Current Inpatient Medications: Current Inpatient Medications Acetaminophen (Tylenol) 650 mg PO Q4H PRN PRN Reason: Headache or Minor Fever Stop: 12/04/19 14:11 Al Hydrox/Mg Hydrox/Simethicone (Maalox) 30 ml PO Q4H PRN PRN Reason: GI Upset Stop: 12/04/19 14:11 Aripiprazole (Abilify) 5 mg PO QAM KOSTA Stop: 12/08/19 08:59 Bismuth Subsalicylate (Kaopectate) 15 ml PO PRN PRN PRN Reason: Loose Stool Stop: 12/04/19 14:11 Hydroxyzine HCl (Vistaril) 50 mg PO HSZ PRN PRN Reason: Insomnia Stop: 12/04/19 14:11 Last Admin: 11/06/19 22:07 Dose: 50 mg Documented by: Hydroxyzine HCl (Vistaril) 25 mg PO Q4H PRN PRN Reason: Anxiety Stop: 12/04/19 14:11 Magnesium Hydroxide (Milk Of Magnesia) 30 ml PO DAILY PRN PRN Reason: Constipation Stop: 12/04/19 14:11 Sertraline HCl (Zoloft) 100 mg PO QAM KOSTA Stop: 12/07/19 08:59 Last Admin: 11/07/19 08:39 Dose: 100 mg Documented by: Sodium Chloride ([place] Nasal) 1 - 2 sprays NA PRN PRN PRN Reason: Nasal Dryness/Congestion Stop: 12/04/19 14:11 Mental Health & Subst Abuse Tx Psychiatrist [facility] Date of Appointment with Psychiatrist: 11/12/19 Time of Appointment with Psychiatrist: 2:30 pm Psychiatric Appointment Comment: Telehealth Therapist Name of Therapist: Elia Kendrick [facility] Therapist's Date of Therapist Appointment: 11/10/19 Time of Therapist Appointment: 3:00 pm Therapy Appointment Comment: Sign up for patient portal- activate portal- Activation Code: [id number] Cup Machine Operator Name of Cup Machine Operator: None Post Discharge Appointments Primary Care Physician Name Of Family Doctor: Megan Harden Primary Care Provider Appointment Comment: Please follow up as needed Contact Information Discharge Discharge Address: [address] [place] [address], [place], [facility]
[2019-11-08] MEDS: ARIPiprazole 5 MG TAB PO SCH (08:21)
[2019-11-08] MEDS: SERTRALINE HCL 100 MG TABLET PO SCH (08:21)
[2019-11-08 09:15] LABS: Glucose Fasting 94 mg/dl (70-99)
[2019-11-08 09:26] LABS: Chol HDL Ratio 4; Cholesterol 137 mg/dl (0-200); HDL Cholesterol 38 mg/dl; LDL Cholesterol Calculated 56 mg/dl; Triglycerides 217 mg/dl (0-150); VLDL Cholesterol 43 mg/dl
--- NOTE | 2019-11-08 10:42 | Psychiatric Progress Note ---
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 His symptoms have worsened over the past month, triggered by the coronavirus pandemic and resulting restrictions/societal changes. He struggles with loss of routine and uncertainty, and although symptoms had been worsening steadily for the past month, he did not contact the outpatient clinic or seek out psychotherapy. He reports feeling that he should have been able to deal with it himself, and has placed a lot of pressure on himself to handle his symptoms on his own. His sertraline is being held due to overdose with ongoing GI effects, but will resume it tomorrow with a plan to titrate to an effective (likely higher) dose. He will also need a family meeting with his , and referral for individual psychotherapy. Inpatient treatment is medically necessary due to the severity of his symptoms and risk for suicide if discharged. The patient's sertraline was held on the day of admission and was reinstituted the following day at 50 mg a day. The patient's laboratory data is essentially within normal limits, and we will resume sertraline 100 mg daily, the patient's most recent previous outpatient dose. The plan is to titrate the patient's dose of sertraline from 100 mg a day up to 150 or even 200 mg a day, gradually as tolerated. We also discussed the addition of an "adjunct" medication. He notes that in the past he has taken Wellbutrin, but indicates that this worsened his anxiety, and he feels that anxiety may be a larger problem for him than depression. He may benefit from a low-dose of aripiprazole, which not only helped improve his mood but may also help with anxiety. We are also considering possibility of adding buspirone as an anxiolytic. Re-reviewed above, increase Zoloft to 150 mg target. (1) Suicide attempt by multiple drug overdose: 11/04 -patient remains slightly tachycardic, although EKG on presentation was normal. Continue to monitor and encourage fluids. -Patient was able to tolerate food today, but has mild nausea. Continue to hold sertraline. -UDS positive for benzodiazepines, but he denies taking benzodiazepines, and has not been prescribed them per PDMP. Follow-up on confirmatory results when available. -Continue to explore the evolution of his symptoms that led to his suicide attempt, to assist in developing coping strategies and safety plan. -Family meeting with . 11/05 -The patient's vital signs are stable. His laboratory data is essentially within normal limits. Sertraline was reintroduced today at a dose of 50 mg a day, and it will be increased back to 100 mg a day starting tomorrow. -I have offered the patient a trial dose of aripiprazole 2.5 mg daily as an adjunct for sertraline and, also, possibly to assist with his obsessive tendency to "catastrophize" and, also, as a possible anxiolytic. Material risks and anticipated benefits of aripiprazole reviewed with the patient. He asked several questions and indicated understanding. -The patient reports that he is not currently experiencing any suicidal thoughts and has not had any since admission. Instead, he notes that his thoughts about suicide are primarily related to embarrassment and shame. He has been thinking about the fact (with input from his ) about the fact that he might have left her alone at the age of 40 with 2 young children and no partner. He also is considering the fact that it is entirely possible that he might of , and that 1 of the sons may have been the one who discovered him. (In fact, it was the 12-year-old son who discovered the patient in the process of attempting suicide.) -Self-esteem seems to be a central issue, and the patient makes frequent self depreciating comments. This may be a function of his depression, but it seems fairly clear that he lacks self-confidence and has trouble identifying his own strengths. This is an issue that we will look at and individual and, as indicated, group therapies during the stay. (2) Depression: 11/04 -sertraline has been effective in the past, so will resume it tomorrow, providing nausea has resolved. Will start with 50 mg daily, and titrate to a goal dose of 150 or 200 mg daily. -Encourage patient to attend and participate in groups and therapy, work on healthy coping skills and discharge safety plan. -Refer for individual psychotherapy; he has seen multiple therapists at some point in the past, and will think about his preferences (whether he would like to return to a previous therapist or see someone new). -Patient reports benefit from routine, and has made efforts to maintain a structured schedule at home. Continue to explore this is part of discharge planning. -Offer hydroxyzine as needed for sleep. Italics mean reviewed. 11/07--increase Zoloft to 150 mg. Continue Abilify [address] Fortune. total chol just over 200 with no significant risk factors. (3) Anxiety: 11/04 -resume SSRI as above. Offer hydroxyzine as needed. Work on be havioral techniques for managing anxiety. 11/05 -as above, aripiprazole is being offered to test dose to health center manager the patient's initial response and tolerance. Other options include the addition of buspirone or low-dose quetiapine. 11/07 finds prn Vistaril helpful and is requesting rx at discharge. 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 Review of Systems Sleep Information Total Hours of Sleep: 7 Sleep Comments: pt on q-15 minute checks Meal Information Percent Meal Consumed - Breakfast: 100 Percent Meal Consumed - Lunch: 80 Percent Meal Consumed - Dinner: 90 Subjective Subjective Patient was seen & assessed and interval progress reviewed with nursing and social work. He would like to discuss his suicide attempt with 12 yo son. Tolerating meds. Metabolic labs this am reviewed. Was a little tired yesterday midday but feels better today and doesn't necessarily attribute it to medication. Physical Exam Psychiatric Orientation: alert Apperance: appropriately dressed and appropriately groomed Eye Contact: good eye contact Motor Behavior: no abnormal motor movements Speech: normal rate/rhythm/volume of speech Affect: euthymic affect Mood: + depressed mood Thought Process: linear/logical thought process Thought Content: reality based without delusions Suicidal Thoughts: denies suicidal thoughts Homicidal Thoughts: denies homicidal thoughts Hallucinations: no auditory hallucinations and no visual hallucinations Cognition: recent memory grossly intact Estimated Intelligence: consistent with education level Insight: + fair insight Judgement: + fair judgement Vital Signs (Past 24 Hours) Last Vital Signs Temp 36.6 C 11/08/19 06:56 Pulse 103 H 11/08/19 06:57 Resp 18 11/08/19 06:56 BP 119/83 11/08/19 06:57 Pulse Ox 98 11/04/19 16:04 Results & Data ([facility]) Laboratory Results Laboratory Results - last 24 hr 11/08/19 07:39 Fasting Glucose 94 Triglycerides 217 H Cholesterol 137 LDL Cholesterol, Calc 56 VLDL Cholesterol, Calc 43 HDL Cholesterol 38 Cholesterol/HDL Ratio 4 Current Inpatient Medications Current Inpatient Medications: Current Inpatient Medications Acetaminophen (Tylenol) 650 mg PO Q4H PRN PRN Reason: Headache or Minor Fever Stop: 12/04/19 14:11 Al Hydrox/Mg Hydrox/Simethicone (Maalox) 30 ml PO Q4H PRN PRN Reason: GI Upset Stop: 12/04/19 14:11 Aripiprazole (Abilify) 5 mg PO [facility] Stop: 12/08/19 08:59 Last Admin: 11/08/19 08:21 Dose: 5 mg Documented by: Bismuth Subsalicylate (Kaopectate) 15 ml PO PRN PRN PRN Reason: Loose Stool Stop: 12/04/19 14:11 Hydroxyzine HCl (Vistaril) 50 mg PO HSZ PRN PRN Reason: Insomnia Stop: 12/04/19 14:11 Last Admin: 11/07/19 21:17 Dose: 50 mg Documented by: Hydroxyzine HCl (Vistaril) 25 mg PO Q4H PRN PRN Reason: Anxiety Stop: 12/04/19 14:11 Magnesium Hydroxide (Milk Of Magnesia) 30 ml PO DAILY PRN PRN Reason: Constipation Stop: 12/04/19 14:11 Sertraline HCl (Zoloft) 100 mg PO QAM [facility] Stop: 12/07/19 08:59 Last Admin: 11/08/19 08:21 Dose: 100 mg Documented by: Sodium Chloride ([place] Nasal) 1 - 2 sprays NA PRN PRN PRN Reason: Nasal Dryness/Congestion Stop: 12/04/19 14:11 Mental Health & Subst Abuse Tx Psychiatrist Name of Psychiatrist: [facility] Date of Appointment with Psychiatrist: 11/12/19 Time of Appointment with Psychiatrist: 2:30 pm Psychiatric Appointment Comment: Telehealth Therapist Name of Therapist: Elia Ernst Therapist's Date of Therapist Appointment: 11/10/19 Time of Therapist Appointment: 3:00 pm Therapy Appointment Comment: Sign up for patient portal- activate portal- Activation Code: [id number] Chief Ophthalmic Technician Name of Chief Ophthalmic Technician: None Post Discharge Appointments Primary Care Physician Name Of Family Doctor: Megan Harden Primary Care Provider Appointment Comment: Please follow up as needed Contact Information Discharge Discharge Address: [address] [place] [address] (1) Suicide attempt by multiple drug overdose Encounter type: initial encounter Qualified Code(s): T50.912A - Poisoning by multiple unspecified drugs, medicaments and biological substances, intentional self-harm, initial encounter (2) Depression Active/Remission status: currently active Depression Type: major depressive disorder Major depression episode severity: severe Major depression recurrence: recurrent Psychotic features: without psychotic features Qualified Code(s): F33.2 - Major depressive disorder, recurrent severe without psychotic features
[2019-11-09] MEDS: SERTRALINE HCL 50 MG TABLET PO SCH (08:47)
[2019-11-09] MEDS: ARIPiprazole 5 MG TAB PO SCH (08:47)
--- NOTE | 2019-11-09 10:59 | Psychiatric Progress Note ---
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 His symptoms have worsened over the past month, triggered by the coronavirus pandemic and resulting restrictions/societal changes. He struggles with loss of routine and uncertainty, and although symptoms had been worsening steadily for the past month, he did not contact the outpatient clinic or seek out psychotherapy. He reports feeling that he should have been able to deal with it himself, and has placed a lot of pressure on himself to handle his symptoms on his own. His sertraline is being held due to overdose with ongoing GI effects, but will resume it tomorrow with a plan to titrate to an effective (likely higher) dose. He will also need a family meeting with his , and referral for individual psychotherapy. Inpatient treatment is medically necessary due to the severity of his symptoms and risk for suicide if discharged. The patient's sertraline was held on the day of admission and was reinstituted the following day at 50 mg a day. The patient's laboratory data is essentially within normal limits, and we will resume sertraline 100 mg daily, the patient's most recent previous outpatient dose. The plan is to titrate the patient's dose of sertraline from 100 mg a day up to 150 or even 200 mg a day, gradually as tolerated. Abilify added as adjunct. Plan: Dr. Corona participated in treatment team this am, significant/impulsive suicide attempt, will reassess appropriateness for discharge when she resumes his care tomorrow. 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 Review of Systems Sleep Information Total Hours of Sleep: 7.25 Sleep Comments: pt given vistaril per rn. pt on q-15 minute checks Meal Information Percent Meal Consumed - Breakfast: 100 Percent Meal Consumed - Lunch: 100 Percent Meal Consumed - Dinner: 90 Subjective Subjective Patient was seen & assessed and interval progress reviewed with treatment team. Plans to discuss his condition with kids by phone today in preparation for return home, reviewed limiting details but answering children's questions in a developmentally appropriate way and add reassurance that future focusssed, de- stigmatizing mental health, etc. Confident with regards to return to work. Tolerating medications. Physical Exam Psychiatric Orientation: alert Apperance: appropriately groomed Eye Contact: good eye contact Motor Behavior: steady gait and station Speech: normal rate/rhythm/volume of speech Affect: euthymic affect Thought Process: clear/coherent thought process Thought Content: reality based without delusions Suicidal Thoughts: denies suicidal thoughts Homicidal Thoughts: denies homicidal thoughts Hallucinations: no auditory hallucinations and no visual hallucinations Vital Signs (Past 24 Hours) Last Vital Signs Temp 36.6 C 11/09/19 06:56 Pulse 97 H 11/09/19 06:57 Resp 18 11/09/19 06:56 BP 113/76 11/09/19 06:57 Pulse Ox 98 11/04/19 16:04 Results & Data ([facility]) Current Inpatient Medications Current Inpatient Medications: Current Inpatient Medications Acetaminophen (Tylenol) 650 mg PO Q4H PRN PRN Reason: Headache or Minor Fever Stop: 12/04/19 14:11 Al Hydrox/Mg Hydrox/Simethicone (Maalox) 30 ml PO Q4H PRN PRN Reason: GI Upset Stop: 12/04/19 14:11 Aripiprazole (Abilify) 5 mg PO QAM [facility] Stop: 12/08/19 08:59 Last Admin: 11/09/19 08:47 Dose: 5 mg Documented by: Bismuth Subsalicylate (Kaopectate) 15 ml PO PRN PRN PRN Reason: Loose Stool Stop: 12/04/19 14:11 Hydroxyzine HCl (Vistaril) 50 mg PO HSZ PRN PRN Reason: Insomnia Stop: 12/04/19 14:11 Last Admin: 11/08/19 21:19 Dose: 50 mg Documented by: Hydroxyzine HCl (Vistaril) 25 mg PO Q4H PRN PRN Reason: Anxiety Stop: 12/04/19 14:11 Magnesium Hydroxide (Milk Of Magnesia) 30 ml PO DAILY PRN PRN Reason: Constipation Stop: 12/04/19 14:11 Sertraline HCl (Zoloft) 150 mg PO QAM [facility] Stop: 12/09/19 08:59 Last Admin: 11/09/19 08:47 Dose: 150 mg Documented by: Sodium Chloride ([place] Nasal) 1 - 2 sprays NA PRN PRN PRN Reason: Nasal Dryness/Congestion Stop: 12/04/19 14:11 Mental Health & Subst Abuse Tx Psychiatrist [facility] Date of Appointment with Psychiatrist: 11/12/19 Time of Appointment with Psychiatrist: 2:30 pm Psychiatric Appointment Comment: Telehealth Therapist Name of Therapist: Elia Ernst Therapist's Date of Therapist Appointment: 11/10/19 Time of Therapist Appointment: 3:00 pm Therapy Appointment Comment: Sign up for patient portal- activate portal- Activation Code: [id number] Sorter Pricer Name of Sorter Pricer: None Post Discharge Appointments Primary Care Physician Name Of Family Doctor: Megan Harden Primary Care Provider Appointment Comment: Please follow up as needed Contact Information Discharge Discharge [address]: [address] [place] [address]
[2019-11-10 06:59] VITALS: TEMP 98.1
[2019-11-10] MEDS: SERTRALINE HCL 50 MG TABLET PO SCH (08:15)
[2019-11-10] MEDS: ARIPiprazole 5 MG TAB PO SCH (08:16)
--- NOTE | 2019-11-10 10:06 | Discharge Summary ---
Date of Service November 10, 2019 History of Present Illness Patient is well-known to me as I have been seeing him in the outpatient clinic since 2012. He has a history of severe recurrent depression starting when he was a freshman in college, with episodes of depression typically occurring during life transitions. He has a history of suicide attempts and hospitalizations, last in 2008. His depression has been in remission for about the past 10 years, so in 2017 he was tapered off of oxcarbazepine, and continued on sertraline 100 mg daily. We were considering tapering him off the sertraline as well this spring, but at his last appointment 1 month ago, he reported a slight increase in anxiety due to the coronavirus pandemic, so the SSRI was continued for the time being. He has not been in therapy for years, due to symptom remission. His called the outpatient clinic yesterday reporting that he had overdosed in a suicide attempt, and was directed to take him to the ER immediately. He presented to the ER and reported an intentional overdose around 8:30 AM on 15-20 sertraline 100 mg tabs, 30-40 melatonin 10 mg tabs, and approximately 1 cup of Clorox and Vicks vapor. He vomited immediately after the ingestion, and then went and sat in his car in a closed garage with the engine on in another attempt to harm himself. EKG was normal sinus rhythm, rate 86, and he had continuous cardiac monitoring in the ER. Poison control was contacted and recommended observation for 6 hours to monitor for aspiration, nausea and vomiting, or seizures. He has had episodic mild tachycardia. CBC, CMP, and TSH were unremarkable. UA notable for elevated specific gravity and 1+ ketones, and UDS positive for benzodiazepines, although he denied ingesting benzodiazepines. Per PDMP, he has no history of feeling any controlled substances. He reported worsening depression since the coronavirus pandemic and associated restrictions. He is been worrying about possibly losing his job at [employer], a sense of dread about what the future holds, racing thoughts, and poor sleep. He reported having thoughts of suicide but felt able to manage them until the morning of his overdose, when he woke up and had racing, obsessive thoughts and impulsively took the overdose and then attempted carbon monoxide poisoning to end his life. He said he was sitting in his car for approximately 30 minutes before his and son found him. He denied any substance use other than the overdose. He agreed to voluntary hospitalization. On my assessment, he reports mood and anxiety have worsened over the past month, exacerbated by his realization that all of the changes related to the pandemic will likely continue for some time, and uncertainty about the future/concerns about job security. His sleep has been disrupted, waking up feeling anxious with a sense of dread, and he has lost approximately 15 pounds. He endorses feelings of guilt, as he does not feel he should be struggling, and due to attempting suicide, which he states he promised his he would never do again. He reports sad mood, rumination, racing obsessive thoughts, increasingly negative thoughts "everything is pessimistic," and constant sense of anxiety "about what's going on in the world," and morning the loss of "normal life." He says he realized about 2 weeks ago that he was depressed, talked to his about it, and said he "really wanted to fight it, I know everyone else is dealing with this too." He started having fleeting suicidal thoughts over the past 2 weeks, but denies he had any plan or intent to act on these thoughts. Yesterday morning he says he woke up and "I couldn't handle it, couldn't deal with his uncertainty," so took the overdose impulsively on the medications he had available. He says he drank the Vicks vapor because it was there, and says he cannot explain why he ingested bleach, other than he had done that in the past as a suicide attempt and "it was just automatic." He states he did not think that he would , but did think that the ingestion might harm him. He thinks that he did it in response to desperate need to escape and feeling "I can't do this anymore." He says he does not know why he then went and sat in his car with the engine running in the closed garage, stating he had never before thought about harming himself this way, but knew a person who from carbon monoxide poisoning. He says the episode now seems "surreal, incredibly dangerous, and not smart." He says "part of me is thankful I am still alive, but the issues are still there." He states he is a person who likes routine, and he and his family had been sticking to a daily routine where he and his both worked from home, shared home schooling duties with her children, they will went for a family walk daily, and were eating healthy meals. He is worried about missing work, stating the semester is ending and his grades are due at the end of next week. He denies symptoms of psychosis and allen. Physical Exam Psychiatric Orientation: alert, oriented x 3 and cooperative Apperance: appropriately dressed, appropriately groomed and appeared stated age Eye Contact: good eye contact Motor Behavior: steady gait and station and no abnormal motor movements Speech: normal rate/rhythm/volume of speech Affect: euthymic affect and mood congruent with affect "Much better." Thought Process: goal directed thought process, linear/logical thought process and clear/coherent thought process Thought Content: reality based without delusions Suicidal Thoughts: denies suicidal thoughts Homicidal Thoughts: denies homicidal thoughts Hallucinations: no auditory hallucinations and no visual hallucinations Cognition: recent memory grossly intact, attention grossly intact and language grossly intact Estimated Intelligence: + above average estimated intelligence Insight: good insight Judgement: + fair judgement Vital Signs (Past 24 Hours) Last Vital Signs Temp 36.7 C 11/10/19 06:57 Pulse 91 H 11/10/19 06:58 Resp 18 11/10/19 06:57 BP 116/83 11/10/19 06:58 Pulse Ox 98 11/04/19 16:04 Principal Diagnosis Major depressive disorder, recurrent, severe without psychosis. Generalized anxiety disorder. Obsessive-compulsive personality traits. Psychiatric Data The patient was hospitalized on our unit for 6 days. On admission, his sertraline was initially held due to overdose with ongoing gastrointestinal effects, but it was resumed the following day and titrated to 150 mg daily to target depression and anxiety. He was started on aripiprazole for augmentation. He reported good effect from as needed hydroxyzine for both sleep and anxiety, and requested a prescription at discharge. He had a family meeting with his and the healthcare social worker on 11/06/2019, during which he expressed regret for his suicide attempt, stated he was feeling more optimistic and hoping to return home soon. He acknowledged that he internalizes stress and does not open up as much as he should with his supports. His shared that he struggles to handle stressors in life, and becomes self involved when he is spiraling and is unable to see others needs and perspectives. She talked at length about stressors they have had in their family, and how she believes these are related to his childhood and upbringing. She said that he should "suck it up," and that his behavior was selfish in nature. She also noted OCD tendencies, including the need to run the plug overwrap machine tender at certain times, do laundry constantly, maintaining a routine, and strict bedtimes. The patient acknowledged that he feels more confident when he is in control, and that this has caused difficulty in handling the changes related to the pandemic. His both indicated concern that he would be discharged too rapidly and nothing would change, and also not wanting him to be in the hospital too long as he had 125 papers to grade by the following Saturday. Family therapy was recommended, and they agreed to pursue it. She confirmed that his medications are locked in a safe at home and they have no firearms. The patient continued to speak with his daily on the phone, and reported that he felt the meeting was productive and that she was supportive. He attended and participated in groups and therapy, and interacted appropriately with staff and peers. He tolerated medications well, was referred for outpatient therapy, and completed a safety plan. He processed the effects of his suicide attempt on his family, and made a plan to talk with his older son when he returned home. He demonstrated improved mood, decreased anxiety, and consistently denied suicidal thoughts while in the hospital. Day of Discharge Assessment Staff report the patient is attending and participating in groups, met with the healthcare social worker one-on-one and processed the stressors he expects when he returns home, including the guilt he feels about his suicide attempt and how he will process this with his older son and . He requested hydroxyzine 50 mg at bedtime which appeared to be helpful. He is stating readiness for discharge. On my assessment, he states that his mood is "much better," as he feels hopeful, optimistic about the future, and is looking forward to returning home and being with his family. He denies suicidal thoughts, and maintains that his suicide attempts were impulsive in nature. He also reports significant improvement in anxiety, and is able to list various coping strategies he has been working on here and have noted are helpful including: Limiting access to news about the pandemic, improved communication with others, focusing on the basics such as daily exercise and healthy diet, and ongoing work on his relationship with his . He feels his is supportive and that the family meeting was helpful as "she was able to communicate her fears and frustrations," and they plan to pursue family therapy. He denies side effects to his medications, and is able to review his discharge safety plan. Transition of Care Transition Of Care Record: was reviewed with the patient Advance Directives Advance Directives Information Provided: Yes Advance Directives: No Mental Health Advance Directive: No Advance Directives on File: No Living Will: No Power of Wind Energy Project Manager: No Advance Directives Reason:: Declines as Mental Health Visit. Risk Factors Assessment Risk factors were mitigated by admission to the inpatient unit, use of medications to target mood and anxiety symptoms, involving him in groups and therapy, working on healthy coping skills and a discharge safety plan, family meeting with his , recommendations for family therapy, and referral for return to individual therapy. He has demonstrated improvement in mood and anxiety symptoms, has consistently denied suicidal thoughts, is taking medications as prescribed, stating willingness to follow-up with outpatient treatment, and performing ADLs independently. He is eating and sleeping well, and is requesting discharge. He is no longer at acute risk of harm to himself, so can be managed as an outpatient at this time. 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 Relationships: Yes Supportive Family: Yes Good Rapport with Provider: Yes Tobacco Cessation at Discharge Tobacco Cessation Medication Prescribed at Discharge: Not Applicable/Non-Smoker Total Time Total Time Spent: Greater Than 30 Minutes Total Time Includes: Examination of the patient, Discharge Planning and Medication Reconciliation Discharge Data Lab Results 11/04/19 11/04/19 11/04/19 11:40 11:40 11:40 WBC RBC Hgb Hct MCV MCH MCHC RDW Std Deviation RDW Coeff of Chloé Plt Count MPV Immature Gran % (Auto) Neut % (Auto) Lymph % (Auto) Pope % (Auto) Eos % (Auto) Baso % (Auto) Immature Gran # (Auto) Neut # (Auto) Lymph # (Auto) Pope # (Auto) Eos # (Auto) Baso # (Auto) Carboxyhemoglobin Sodium Potassium Chloride Carbon Dioxide Anion Gap BUN Creatinine Est Cr Clr Drug Dosing Est GFR ( Amer) Est GFR (Non-Af Amer) BUN/Creatinine Ratio Glucose Fasting Glucose Calcium Phosphorus Magnesium Total Bilirubin AST ALT Alkaline Phosphatase Total Protein Albumin Globulin Albumin/Globulin Ratio Triglycerides Cholesterol LDL Cholesterol, Calc VLDL Cholesterol, Calc HDL Cholesterol Cholesterol/HDL Ratio TSH Urine Color Dark Yellow Urine Appearance Clear Urine pH 5.5 Ur Specific [place] 1.038 H Urine Protein Negative Urine Glucose (UA) Negative Urine Ketones 1+ H Urine Blood Negative Urine Nitrite Negative Urine Bilirubin Negative Urine Urobilinogen Negative Ur Leukocyte Esterase Negative Salicylates Urine Opiates Screen Neg Ur Methadone, Qual Neg Acetaminophen Urine Barbiturates Neg Ur Phencyclidine (PCP) Neg U Amphetamin/Meth Scrn Neg MDMA (Ecstasy) Screen Neg U OH-Alprazolam Confrm NEGATIVE U Benzodiazepines Scrn Pos H 7-Amino Clonazepam NEGATIVE Ur Nordiazepam Confirm NEGATIVE U OH-ethylflurazepam NEGATIVE U Lorazepam Cnf GC/MS NEGATIVE U Oxazepam Confm GC/MS NEGATIVE Ur Temazepam Confirm NEGATIVE U OH-Triazolam Confirm NEGATIVE U OH-Midazolam Confirm NEGATIVE Ur Cocaine Metabolite Neg U Marijuana (THC) Screen Neg Drug Screen Comment SEE NOTE Ethyl Alcohol mg/dL 11/04/19 11/04/19 11/04/19 11:43 11:43 11:43 WBC 9.43 RBC 4.81 Hgb 15.2 Hct 43.7 MCV 90.9 MCH 31.6 MCHC 34.8 RDW Std Deviation 40.6 RDW Coeff of Chloé 12.2 Plt Count 272 MPV 10.8 H Immature Gran % (Auto) 0.1 Neut % (Auto) 86.8 Lymph % (Auto) 7.1 Pope % (Auto) 5.6 Eos % (Auto) 0.0 Baso % (Auto) 0.4 Immature Gran # (Auto) 0.01 Neut # (Auto) 8.18 H Lymph # (Auto) 0.67 L Pope # (Auto) 0.53 Eos # (Auto) 0.00 Baso # (Auto) 0.04 Carboxyhemoglobin Sodium 139 Potassium 4.0 Chloride 106 Carbon Dioxide 26 Anion Gap 7.0 BUN 16 Creatinine 0.93 Est Cr Clr Drug Dosing 113.6 Est GFR ( Amer) 119.4 Est GFR (Non-Af Amer) 103.0 BUN/Creatinine Ratio 16.8 Glucose 121 H Fasting Glucose Calcium 9.1 Phosphorus 3.1 Magnesium 2.0 Total Bilirubin 1.3 H AST 18 ALT 24 Alkaline Phosphatase 79 Total Protein 8.1 Albumin 4.7 Globulin 3.4 Albumin/Globulin Ratio 1.4 Triglycerides Cholesterol LDL Cholesterol, Calc VLDL Cholesterol, Calc HDL Cholesterol Cholesterol/HDL Ratio TSH 0.699 Urine Color Urine Appearance Urine pH Ur Specific [place] Urine Protein Urine Glucose (UA) Urine Ketones Urine Blood Urine Nitrite Urine Bilirubin Urine Urobilinogen Ur Leukocyte Esterase Salicylates < 1.7 L Urine Opiates Screen Ur Methadone, Qual Acetaminophen < 2 L Urine Barbiturates Ur Phencyclidine (PCP) U Amphetamin/Meth Scrn MDMA (Ecstasy) Screen U OH-Alprazolam Confrm U Benzodiazepines Scrn 7-Amino Clonazepam Ur Nordiazepam Confirm U OH-ethylflurazepam U Lorazepam Cnf GC/MS U Oxazepam Confm GC/MS Ur Temazepam Confirm U OH-Triazolam Confirm U OH-Midazolam Confirm Ur Cocaine Metabolite U Marijuana (THC) Screen Drug Screen Comment Ethyl Alcohol mg/dL 11/04/19 11/04/19 11/08/19 11:43 11:43 07:39 WBC RBC Hgb Hct MCV MCH MCHC RDW Std Deviation RDW Coeff of Chloé Plt Count MPV Immature Gran % (Auto) Neut % (Auto) Lymph % (Auto) Pope % (Auto) Eos % (Auto) Baso % (Auto) Immature Gran # (Auto) Neut # (Auto) Lymph # (Auto) Pope # (Auto) Eos # (Auto) Baso # (Auto) Carboxyhemoglobin 0.3 Sodium Potassium Chloride Carbon Dioxide Anion Gap BUN Creatinine Est Cr Clr Drug Dosing Est GFR ( Amer) Est GFR (Non-Af Amer) BUN/Creatinine Ratio Glucose Fasting Glucose 94 Calcium Phosphorus Magnesium Total Bilirubin AST ALT Alkaline Phosphatase Total Protein Albumin Globulin Albumin/Globulin Ratio Triglycerides 217 H Cholesterol 137 LDL Cholesterol, Calc 56 VLDL Cholesterol, Calc 43 HDL Cholesterol 38 Cholesterol/HDL Ratio 4 TSH Urine Color Urine Appearance Urine pH Ur Specific [place] Urine Protein Urine Glucose (UA) Urine Ketones Urine Blood Urine Nitrite Urine Bilirubin Urine Urobilinogen Ur Leukocyte Esterase Salicylates Urine Opiates Screen Ur Methadone, Qual Acetaminophen Urine Barbiturates Ur Phencyclidine (PCP) U Amphetamin/Meth Scrn MDMA (Ecstasy) Screen U OH-Alprazolam Confrm U Benzodiazepines Scrn 7-Amino Clonazepam Ur Nordiazepam Confirm U OH-ethylflurazepam U Lorazepam Cnf GC/MS U Oxazepam Confm GC/MS Ur Temazepam Confirm U OH-Triazolam Confirm U OH-Midazolam Confirm Ur Cocaine Metabolite U Marijuana (THC) Screen Drug Screen Comment Ethyl Alcohol mg/dL < 3.0 Hospital Course (1) Suicide attempt by multiple drug overdose: 11/04 -patient remains slightly tachycardic, although EKG on presentation was normal. Continue to monitor and encourage fluids. -Patient was able to tolerate food today, but has mild nausea. Continue to hold sertraline. -UDS positive for benzodiazepines, but he denies taking benzodiazepines, and has not been prescribed them per PDMP. Follow-up on confirmatory results when available. -Continue to explore the evolution of his symptoms that led to his suicide attempt, to assist in developing coping strategies and safety plan. -Family meeting with . 11/05 -The patient's vital signs are stable. His laboratory data is essentially within normal limits. Sertraline was reintroduced today at a dose of 50 mg a day, and it will be increased back to 100 mg a day starting tomorrow. -I have offered the patient a trial dose of aripiprazole 2.5 mg daily as an adjunct for sertraline and, also, possibly to assist with his obsessive tendency to "catastrophize" and, also, as a possible anxiolytic. Material risks and anticipated benefits of aripiprazole reviewed with the patient. He asked several questions and indicated understanding. -The patient reports that he is not currently experiencing any suicidal thoughts and has not had any since admission. Instead, he notes that his thoughts about suicide are primarily related to embarrassment and shame. He has been thinking about the fact (with input from his ) about the fact that he might have left her alone at the age of 40 with 2 young children and no partner. He also is considering the fact that it is entirely possible that he might of , and that 1 of the sons may have been the one who discovered him. (In fact, it was the 12-year-old son who discovered the patient in the process of attempting suicide.) -Self-esteem seems to be a central issue, and the patient makes frequent self depreciating comments. This may be a function of his depression, but it seems fairly clear that he lacks self-confidence and has trouble identifying his own strengths. This is an issue that we will look at and individual and, as indicated, group therapies during the stay. 11/06 -family meeting held with , who confirmed that he will not have access to medications as they are stored in the safe, and that they have no firearms. He was able to review his safety plan with her. (2) Depression: 11/04 -sertraline has been effective in the past, so will resume it tomorrow, providing nausea has resolved. Will start with 50 mg daily, and titrate to a goal dose of 150 or 200 mg daily. -Encourage patient to attend and participate in groups and therapy, work on healthy coping skills and discharge safety plan. -Refer for individual psychotherapy; he has seen multiple therapists at some point in the past, and will think about his preferences (whether he would like to return to a previous therapist or see someone new). -Patient reports benefit from routine, and has made efforts to maintain a structured schedule at home. Continue to explore this is part of discharge planning. -Offer hydroxyzine as needed for sleep. 11/07--increase Zoloft to 150 mg. Continue Abilify [address] Fortune. 11/09 -fasting labs for baseline on an atypical antipsychotic were done 11/08/2019: Glucose 94, triglycerides 217. Total cholesterol 137. -Follow-up with me at [facility] in 2 days, and has been referred for a therapy evaluation with Mireille Ernst also on 11/12/2019. (3) Anxiety: 11/04 -resume SSRI as above. Offer hydroxyzine as needed. Work on behavioral techniques for managing anxiety. 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 Other options include the addition of buspirone or low-dose quetiapine. 11/07 finds prn Vistaril helpful and is requesting rx at discharge. Mental Health & Subst Abuse Tx Psychiatrist Name of Psychiatrist: Dr. Corona- [facility] Date of Appointment with Psychiatrist: 11/12/19 Time of Appointment with Psychiatrist: 2:30 pm Psychiatric Appointment Comment: Telehealth Therapist Name of Therapist: Elia Ernst Therapist's Date of Therapist Appointment: 11/12/19 Time of Therapist Appointment: 11:00am Therapy Appointment Comment: Sign up for patient portal- activate portal- Activation Code: [id number] Coloring Checker Name of Coloring Checker: None Post Discharge Appointments Primary Care Physician Name Of Family Doctor: Megan Harden Primary Care Provider Appointment Comment: Please follow up as needed Smoking Cessation Counseling Tobacco Cessation Medication Prescribed at Discharge: Not Applicable/Non-Smoker Contact Information Discharge Discharge Address: [address] [place] [address] Discharge Plan Discharge Items Patient Disposition: Home - Self-Care Reason For Visit: MDD,SI Discharge Diagnosis: Depression Activity: Per Instructions section Non-emergency contact: Primary Care Provider, Psychiatrist and Therapist Call non-emergency contact if: you have any medication questions and your symptoms worsen Follow-up/Referrals: Kavin Harden MD [Primary Care Provider] - Diet: Regular Addtl Attending Provider Instructions: SPECIAL CARE INSTRUCTIONS: 1. Follow through with your scheduled aftercare appointments. If unable to keep an appointment, please call to reschedule. 2. Take your medication only as prescribed. Medication should not be changed or stopped without the approval of your doctor. In the event of worsening symptoms or concerns about side effects, contact your doctor immediately. 3. Utilize new healthy coping skills, anger management skills, and stress management skills learned during your hospitalization. Journal feelings and process them with a support person. Identify stressors or situations that may result in relapse, deterioration or inappropriate behaviors and develop a plan to deal with those issues. 4. If your coping skills are ineffective and you are in crisis, contact your outpatient providers for direction. If unable to reach your providers, please call the CAN HELP LINE AT or go to the closest Emergency Room. 5. Avoid alcohol and un-prescribed drugs. 6. You have been provided with the Mental Health Advance Directives Pamphlet for your review. AFTERCARE APPOINTMENTS: * Please call your insurance company prior to your scheduled appointment to confirm your aftercare providers are covered. Take your insurance information to your appointments. WHO TO CALL AND WHEN: Medical Emergencies: For questions or emergencies related to your hospital stay, please contact the Inpatient Behavioral Health Unit at [phone]. A speech and language clinician is on-call 28/01 for the Behavioral Health Unit for emergencies At any time you feel your situation is an emergency, you may also call 911 immediately. Your Doctors Instructions noted above were prepared by provider Trinidad Corona MD. Pending Studies at Discharge: No Stand-Alone Forms: My [facility] [employer], Smoking Cessation, Suicide Prevention Resources Medications and DC Order Prescriptions: New aripiprazole [Abilify] 5 mg Tablet 5 mg PO QAM Qty: 30 RF: 0 hydroxyzine HCl 25 mg Tablet 25 mg PO UD PRN (Reason: anxiety or sleep) Qty: 60 RF: 0 sertraline 100 mg tablet 150 mg PO QAM Qty: 45 RF: 0 Discontinued sertraline [Zoloft] 100 mg Tablet 100 mg PO DAILY RF: 0 Discharge Orders: Discharge Order (Routine); Ordered 11/10/19 Ordered By: Trinidad Corona Admission Data Admit Date/Time: 11/04/19 14:16 Attending Provider: Trinidad Corona Admit Provider: Trinidad Corona Primary Care Provider: Kavin Harden Other Interventions: PSY Interdisciplinary Discharge Planning Last Done: 11/09/19 14:58 Coding Level of Care Code 30685 D/C day mgmt > 30 min Diagnoses Suicide attempt by multiple drug overdose T50.912A Encounter type: initial encounter Depression F33.2 Depression Type: major depressive disorder Major depression recurrence: recurrent Active/Remission status: currently active Major depression episode severity: severe Psychotic features: without psychotic features Anxiety F41.9
[2019-11-10 10:52] VITALS: BP 124/78; PULSE 88
== END 2019-11-10 12:55 | disposition home or self-care (01) | DRG 918 ==
LOC: ED 11:07 → 3S 14:16

== ENCOUNTER 2020-04-24 11:53 | Inpatient (IN) ==
--- NOTE | 2020-04-24 12:17 | Emergency Department Note ---
History of Present Illness General Chief complaint: Mental Health Evaluation Stated complaint: MENTAL HEALTH EVAL Time Seen by Provider: 04/24/20 12:00 Source: patient Mode of arrival: ambulatory Limitations: no limitations History of Present Illness This patient has a long history of depression with impulsive behavior and previous suicidal attempts/overdose comes in after feeling more depressed. He says he feels worthless and not any good. Has been tired and not sleeping well. His lack of motivation and energy. He has been impulsive in the past so he is worried about what he could do although at present he does not have a plan to hurt himself. He says he just does not want to be here. No homicidal ideations. He is not seeing or hearing things. His previous attempts have been overdose on medication as well as he said that he tried to overdose on carbon monoxide in his car. He takes Zoloft and Abilify which she says has been taking. No extra medications or missed medications. Denies aspirin or Tylenol ingestion. He drank 2 beers yesterday but does not drink much. No drug use. He has had no exposures to Covid. No fever chills or flulike symptoms. No cough or body aches. No change in taste or smell. No GI symptoms. Home Medications Home Medications Medication Instructions Recorded Confirmed Type aripiprazole [Abilify] 5 mg PO QAM #30 tab 11/10/19 04/24/20 Rx sertraline 200 mg PO QAM 03/19/20 04/24/20 History Allergies Allergy/AdvReac Type Severity Reaction Status Date / Time No Known Allergies Allergy Unknown Verified 03/19/20 10:50 Past Med/Surg History Medical History Anxiety Depression Surgical History No pertinent past surgical history Social History Smoking Status: Never smoker Preferred Language: Albanian Communication Ability: Effective Hearing Ability: Normal Mill Work Required: No Beliefs That Will Affect Care: None marital status: current occupational status: employed 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 [employer] Feels Safe at Home: Yes Assistive Devices: Glasses Review of Systems A total of 10 systems reviewed and were otherwise negative Physical Exam Vital Signs Vital Signs - 24 hr 04/24/20 11:54 04/24/20 12:56 Temperature 36.8 C Temperature Source Oral Pulse Rate 94 H Pulse Rate [Left Finger] 90 Respiratory Rate 16 18 Respiratory Effort / Characteristics Non-Labored Spontaneous Non-Labored Respiratory Depth Normal Normal Blood Pressure 108/68 Blood Pressure [Left Arm] 111/78 Blood Pressure Mean 81 Blood Pressure Mean [Left Arm] 89 Blood Pressure Position Sitting Pulse Oximetry 97 96 Oxygen Delivery Method Room Air Room Air Sepsis Recent Fever Within 48 Hours No Sepsis New/Unexplained Change in Mental Status No Sepsis Action Taken by Nursing No Action Required General: Well developed well nourished middle-age male who appears in no acute distress, breathing comfortably on room air. Normal speech. Alert and orient x3 HEENT: Normal cephalic atraumatic. Pupils are equal round and reactive to light. Extraocular movements are intact. Oropharynx is pink with moist mucous membranes. No swelling of the mouth lips or tongue. Neck: Supple with a midline trachea. No meningeal signs or stiffness, no JVD or bruits. No Stridor. Chest: Clear to auscultation bilaterally. No wheezes or rhonchi. No increased work of breathing. Heart: Regular rate and rhythm without murmurs or gallops. Abdomen: Soft nontender, nondistended without rebound guarding or rigidity. Extremities: No cyanosis clubbing or edema. No calf tenderness or assymetry Spine/Back. Non tender to palpation. No CVA tenderness Skin: Good turgor without rashes. Neurologic exam: Cranial nerves two through 12 are intact. Motor and sensation are intact and symmetrical throughout. Psych: Normal affect and thought process. No present suicidal or homicidal ideations Medical Decision Making Differential Diagnosis Depression, anxiety, overdose, toxicologic, metabolic, electrolyte or metabolic abnormality, Covid Medical Records Attestation: I reviewed the patient's medical records. Home Medications Current Medication List: was personally reviewed by me Laboratory Data Attestation: I reviewed the patient's lab results. Result diagrams: 04/24/20 12:26 04/24/20 12:26 Lab Results 04/24/20 04/24/20 04/24/20 Range/Units 12:20 12:20 12:26 WBC 5.23 (4.8-10.8) K/uL RBC 4.56 L (4.7-6.1) M/uL Hgb 14.2 (14.0-18.0) g/dL Hct 41.6 L (42-52) % MCV 91.2 (80-100) fL MCH 31.1 (25-34) pg MCHC 34.1 (32-36) g/dL RDW Std Deviation 41.9 (36.4-46.3) fL RDW Coeff of Chloé 12.5 (11.5-14.5) % Plt Count 258 (130-400) K/uL MPV 10.8 H (7.4-10.4) fL Immature Gran % (Auto) 0.2 % Neut % (Auto) 65.7 % Lymph % (Auto) 26.0 % [place] % (Auto) 6.7 % Eos % (Auto) 0.6 % Baso % (Auto) 0.8 % Neut # (Auto) 3.44 (1.4-6.5) K/uL Lymph # (Auto) 1.36 (1.2-3.4) K/uL [place] # (Auto) 0.35 (0.11-0.59) K/uL Eos # (Auto) 0.03 (0-0.5) K/uL Baso # (Auto) 0.04 (0-0.2) K/uL Immature Gran # (Auto) 0.01 (0.00-0.02) K/uL Sodium (136-145) mmol/L Potassium (3.5-5.1) mmol/L Chloride (98-107) mmol/L Carbon Dioxide (21-32) mmol/L Anion Gap (3-11) BUN (7-18) mg/dl Creatinine (0.6-1.4) mg/dl Est Cr Clr Drug Dosing ml/min Est GFR ( Amer) Est GFR (Non-Af Amer) BUN/Creatinine Ratio (10-20) Glucose (70-99) mg/dl Calcium (8.5-10.1) mg/dl Total Bilirubin (0.2-1) mg/dl AST (15-37) U/L ALT (12-78) U/L Alkaline Phosphatase (45-117) U/L Total Protein (6.4-8.2) gm/dl Albumin (3.4-5.0) gm/dl Globulin (2.5-4.0) gm/dl Albumin/Globulin Ratio (0.9-2) TSH (0.300-4.500) uIu/ml Urine Color Yellow Urine Appearance Clear (Clear) Urine pH 5.5 (4.5-7.5) Ur Specific [place] 1.019 (1.000-1.030) Urine Protein Negative (Negative) Urine Glucose (UA) Negative (Negative) Urine Ketones Negative (Negative) Urine Blood Negative (Negative) Urine Nitrite Negative (Negative) Urine Bilirubin Negative (Negative) Urine Urobilinogen Negative (Negative) Ur Leukocyte Esterase Negative (Negative) Salicylates (2.8-20) mg/dl Urine Opiates Screen Neg (Neg) Ur Methadone, Qual Neg (Neg) Acetaminophen (10-30) ug/ml Urine Barbiturates Neg (Neg) Ur Phencyclidine (PCP) Neg (Neg) U Amphetamin/Meth Scrn Neg (Neg) MDMA (Ecstasy) Screen Neg (Neg) U Benzodiazepines Scrn Neg (Neg) Ur Cocaine Metabolite Neg (Neg) U Marijuana (THC) Screen Neg (Neg) Ethyl Alcohol mg/dL (0-3) mg/dl COVID-19 Eval Order SARS-CoV-2, RNA, NAAT (NEGATIVE) 04/24/20 04/24/20 04/24/20 Range/Units 12:26 12:26 12:26 WBC (4.8-10.8) K/uL RBC (4.7-6.1) M/uL Hgb (14.0-18.0) g/dL Hct (42-52) % MCV (80-100) fL MCH (25-34) pg MCHC (32-36) g/dL RDW Std Deviation (36.4-46.3) fL RDW Coeff of Chloé (11.5-14.5) % Plt Count (130-400) K/uL MPV (7.4-10.4) fL Immature Gran % (Auto) % Neut % (Auto) % Lymph % (Auto) % [place] % (Auto) % Eos % (Auto) % Baso % (Auto) % Neut # (Auto) (1.4-6.5) K/uL Lymph # (Auto) (1.2-3.4) K/uL [place] # (Auto) (0.11-0.59) K/uL Eos # (Auto) (0-0.5) K/uL Baso # (Auto) (0-0.2) K/uL Immature Gran # (Auto) (0.00-0.02) K/uL Sodium 139 (136-145) mmol/L Potassium 3.9 (3.5-5.1) mmol/L Chloride 106 (98-107) mmol/L Carbon Dioxide 28 (21-32) mmol/L Anion Gap 5.0 (3-11) BUN 14 (7-18) mg/dl Creatinine 0.98 (0.6-1.4) mg/dl Est Cr Clr Drug Dosing 110.0 ml/min Est GFR ( Amer) 111.3 Est GFR (Non-Af Amer) 96.1 BUN/Creatinine Ratio 14.2 (10-20) Glucose 102 H (70-99) mg/dl Calcium 9.2 (8.5-10.1) mg/dl Total Bilirubin 1.2 H (0.2-1) mg/dl AST 16 (15-37) U/L ALT 21 (12-78) U/L Alkaline Phosphatase 65 (45-117) U/L Total Protein 7.5 (6.4-8.2) gm/dl Albumin 4.2 (3.4-5.0) gm/dl Globulin 3.3 (2.5-4.0) gm/dl Albumin/Globulin Ratio 1.3 (0.9-2) TSH 0.732 (0.300-4.500) uIu/ml Urine Color Urine Appearance (Clear) Urine pH (4.5-7.5) Ur Specific [place] (1.000-1.030) Urine Protein (Negative) Urine Glucose (UA) (Negative) Urine Ketones (Negative) Urine Blood (Negative) Urine Nitrite (Negative) Urine Bilirubin (Negative) Urine Urobilinogen (Negative) Ur Leukocyte Esterase (Negative) Salicylates < 1.7 L (2.8-20) mg/dl Urine Opiates Screen (Neg) Ur Methadone, Qual (Neg) Acetaminophen < 2 L (10-30) ug/ml Urine Barbiturates (Neg) Ur Phencyclidine (PCP) (Neg) U Amphetamin/Meth Scrn (Neg) MDMA (Ecstasy) Screen (Neg) U Benzodiazepines Scrn (Neg) Ur Cocaine Metabolite (Neg) U Marijuana (THC) Screen (Neg) Ethyl Alcohol mg/dL < 3.0 (0-3) mg/dl COVID-19 Eval Order SARS-CoV-2, RNA, NAAT (NEGATIVE) 04/24/20 04/24/20 Range/Units 12:35 12:35 WBC (4.8-10.8) K/uL RBC (4.7-6.1) M/uL Hgb (14.0-18.0) g/dL Hct (42-52) % MCV (80-100) fL MCH (25-34) pg MCHC (32-36) g/dL RDW Std Deviation (36.4-46.3) fL RDW Coeff of Chloé (11.5-14.5) % Plt Count (130-400) K/uL MPV (7.4-10.4) fL Immature Gran % (Auto) % Neut % (Auto) % Lymph % (Auto) % [place] % (Auto) % Eos % (Auto) % Baso % (Auto) % Neut # (Auto) (1.4-6.5) K/uL Lymph # (Auto) (1.2-3.4) K/uL [place] # (Auto) (0.11-0.59) K/uL Eos # (Auto) (0-0.5) K/uL Baso # (Auto) (0-0.2) K/uL Immature Gran # (Auto) (0.00-0.02) K/uL Sodium (136-145) mmol/L Potassium (3.5-5.1) mmol/L Chloride (98-107) mmol/L Carbon Dioxide (21-32) mmol/L Anion Gap (3-11) BUN (7-18) mg/dl Creatinine (0.6-1.4) mg/dl Est Cr Clr Drug Dosing ml/min Est GFR ( Amer) Est GFR (Non-Af Amer) BUN/Creatinine Ratio (10-20) Glucose (70-99) mg/dl Calcium (8.5-10.1) mg/dl Total Bilirubin (0.2-1) mg/dl AST (15-37) U/L ALT (12-78) U/L Alkaline Phosphatase (45-117) U/L Total Protein (6.4-8.2) gm/dl Albumin (3.4-5.0) gm/dl Globulin (2.5-4.0) gm/dl Albumin/Globulin Ratio (0.9-2) TSH (0.300-4.500) uIu/ml Urine Color Urine Appearance (Clear) Urine pH (4.5-7.5) Ur Specific [place] (1.000-1.030) Urine Protein (Negative) Urine Glucose (UA) (Negative) Urine Ketones (Negative) Urine Blood (Negative) Urine Nitrite (Negative) Urine Bilirubin (Negative) Urine Urobilinogen (Negative) Ur Leukocyte Esterase (Negative) Salicylates (2.8-20) mg/dl Urine Opiates Screen (Neg) Ur Methadone, Qual (Neg) Acetaminophen (10-30) ug/ml Urine Barbiturates (Neg) Ur Phencyclidine (PCP) (Neg) U Amphetamin/Meth Scrn (Neg) MDMA (Ecstasy) Screen (Neg) U Benzodiazepines Scrn (Neg) Ur Cocaine Metabolite (Neg) U Marijuana (THC) Screen (Neg) Ethyl Alcohol mg/dL (0-3) mg/dl COVID-19 Eval [facility], RNA, NAAT NEGATIVE (NEGATIVE) MDM Narrative This patient has a history of depression with impulsive behavior and suicidal attempt/overdose. He has been feeling increasingly depressed. He denies any is taken any overdose but is concerned that he does get help avoidance of the impulsive. He does feel safe here and is not presently suicidal. I did order medical clearance labs and he was reassessed. He was medically cleared. He is nothing to suggest acute toxicologic metabolic infectious or other etiology for symptoms. His Covid testing was also negative. He was seen by 3 S. and he is followed by Dr. Corona as an outpatient. He will be admitted to our mental health unit Impression & Plan Depression, Anxiety, Suicidal ideations Discharge Plan Visit Data Chief Complaint: Mental Health Evaluation Stated Complaint: MENTAL HEALTH EVAL ED Provider: Dale Storey Discharge Problem: Depression, Anxiety, Suicidal ideations Patient Disposition: Admitted As Inpatient Discharge Instructions Interventions: ED Discharge Assessment Last Done: 04/24/20 14:20 Discharge Problem: Depression Qualifiers: Depression Type: unspecified Qualified Code(s): F32.9 - Major depressive disorder, single episode, unspecified
[2020-04-24 12:29] LABS: Appearance Urine Clear (Clear); Bilirubin Urine Negative (Negative); Blood Urine Negative (Negative); Color Urine Yellow; Glucose Urine UA Negative (Negative); Ketones Urine Negative (Negative); Leukocyte Esterase Urine Negative (Negative); Nitrite Urine Negative (Negative); Protein Urine Negative (Negative); Specific Gravity Urine 1.019 (1.000-1.030); Urobilinogen Urine Negative (Negative); pH Urine 5.5 (4.5-7.5)
[2020-04-24 12:40] LABS: Basophils # (auto) 0.04 K/uL (0-0.2); Basophils % (auto) 0.8 %; Eosinophils # (auto) 0.03 K/uL (0-0.5); Eosinophils % (auto) 0.6 %; Hematocrit (blood only) 41.6 % (42-52); Hemoglobin 14.2 g/dL (14.0-18.0); Immature Granulocytes # (auto) 0.01 K/uL (0.00-0.02); Immature Granulocytes % (auto) 0.2 %; Lymphocytes # (auto) 1.36 K/uL (1.2-3.4); Mean Corpuscular Hemoglobin 31.1 pg (25-34); Mean Corpuscular Hgb Conc 34.1 g/dL (32-36); Mean Corpuscular Volume 91.2 fL (80-100); Mean Platelet Volume 10.8 fL (7.4-10.4); Monocytes # (auto) 0.35 K/uL (0.11-0.59); Monocytes % (auto) 6.7 %; Neutrophils # (auto) 3.44 K/uL (1.4-6.5); Neutrophils % (auto) 65.7 %; Platelet Count 258 K/uL (130-400); RDW Coefficient of Variation 12.5 % (11.5-14.5); RDW Standard Deviation 41.9 fL (36.4-46.3); Red Blood Count 4.56 M/uL (4.7-6.1); White Blood Count 5.23 K/uL (4.8-10.8)
[2020-04-24 12:56] LABS: Albumin Level 4.2 gm/dl (3.4-5.0); BUN Creatinine Ratio 14.2 (10-20); Calcium 9.2 mg/dl (8.5-10.1); Est GFR (African American) 111.3; Est GFR (Non-African American) 96.1; Potassium 3.9 mmol/L (3.5-5.1)
[2020-04-24 12:58] LABS: Acetaminophen < 2 ug/ml (10-30); Salicylate < 1.7 mg/dl (2.8-20)
[2020-04-24 13:06] LABS: Albumin Globulin Ratio 1.3 (0.9-2); Bilirubin,Total 1.2 mg/dl (0.2-1); Globulin 3.3 gm/dl (2.5-4.0); Thyroid Stimulating Hormone 0.732 uIu/ml (0.300-4.500); Total Protein 7.5 gm/dl (6.4-8.2)
[2020-04-24 13:25] LABS: Amphetamines+Metham, Urine Neg (Neg); Barbiturates, Urine Neg (Neg); Benzodiazepine, Urine Neg (Neg); Cocaine, Urine Neg (Neg); MDMA (Ecstacy), Urine Neg (Neg); Methadone, Urine Neg (Neg); Opiate, Urine Neg (Neg); Phencyclidine, Urine Neg (Neg)
[2020-04-24] MEDS ORDERED: BISMUTH SUBSALICYLATE LIQD 236 ML PO PRN (13:53)
[2020-04-24] MEDS ORDERED: MAGNESIUM HYDROXIDE SUSP 30 ML UDC PO PRN (13:53)
[2020-04-24] MEDS ORDERED: ALUMINUM/MAGNESIUM SUSP 30 ML UDC PO PRN (13:53)
[2020-04-24] MEDS ORDERED: hydrOXYzine HCl 25 MG TAB PO PRN ×2 (13:53)
[2020-04-24] MEDS ORDERED: ACETAMINOPHEN 325 MG TAB PO PRN (13:53)
[2020-04-24] MEDS ORDERED: SODIUM CHLORIDE 0.65% NA SOLN 45 ML (OCEAN) PRN (13:53)
--- NOTE | 2020-04-25 08:18 | History & Physical ---
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 His primary stressor recently has been his depression itself, and the marital difficulties that to some degree have been centered around his depressive episodes and suicide attempt in the spring of this year. He and his had been in couples counseling for a couple of months, but have not gone in about a month due to scheduling difficulties. He is struggling with the guilt associated with having to be hospitalized again and feeling that he is not doing his part at home, as well as fears that his will leave him if he becomes depressed again. Inpatient treatment is medically necessary due to the severity of his symptoms and risk for suicide if disc harged. (1) Depression: 04/25 -reviewed diagnoses and treatment recommendations, including option to titrate sertraline and/or aripiprazole. We will start with maximizing his sertraline by increasing to 250 mg daily to target mood and anxiety symptoms. Consider further titration of aripiprazole; for now continue 7.5 mg daily. -Fasting labs for monitoring on an atypical antipsychotic: Performed during hospitalization in the spring, triglycerides 217 otherwise normal, and was scheduled for repeat labs this month, so will order them for tomorrow. -Schedule family meeting with his . -Coordinate care with his therapist and marital counselor. I have already informed Mireille of his hospitalization. -Encourage group attendance and participation. Work on healthy coping skills and discharge safety plan. Work on grounding techniques to assist him in remaining present, as this has been one of his primary struggles lately. -Sleep has been poor recently, side effects to trazodone, but hydroxyzine was helpful in the past so will offer 50 mg at bedtime as needed. Depression Type: major depressive disorder Major depression recurrence: recurrent Active/Remission status: currently active Major depression episode severity: severe Psychotic features: without psychotic features Qualified Code(s): F33.2 - Major depressive disorder, recurrent severe without psychotic features (2) Anxiety: 04/25 -increase SSRI as above, work on coping strategies Risk Factors Assessment Male: Yes Do You Have Access To A Gun?: Yes Health Problems: No Mental Health Diagnoses: Yes Substance Use Disorders: No Previous Attempt: Yes Previous Attempt; Highly Lethal: Yes Family History of Suicide: No Previous Psychiatric Hospitalization: Yes Hopelessness: Yes Smoker: No Protective Factors Assessment : Yes Responsible for Young Children: Yes Employed: Yes Supportive Family: Yes Good Rapport with Provider: Yes Psychiatric History Identifying Data CORTEZ MICHELE is a 40-year-old M who currently lives in [place] with his and children, has a history of recurrent depression and anxiety, and was admitted on 04/24/20 13:54 on a 201 voluntary commitment for worsening depression and anxiety with suicidal thoughts. Chief Complaint "Not that good". History of Present Illness I see Cortez in the outpatient clinic at [facility], and he called my emergency line yesterday to report worsening depressive and anxiety symptoms over the past 1-2 weeks, with thoughts that he would be better off . He did not feel safe at home, as he has a history of multiple very impulsive and serious suicide attempts, which he was most recently hospitalized for on our unit in October-November 2019, and was concerned that he would impulsively do something to end his life. There is been significant marital stress, and he and his have been in couples counseling for several months. His mood had improved after his hospitalization in the spring, but he continues to struggle with episodic depressive and anxiety symptoms. He has been on sertraline for years and was started on aripiprazole during his most recent hospitalization, and the dose was increased to 7.5 mg daily last month. He was seen in the ER 03/19/2020 after he awoke from a nap feeling dizzy and sweaty, and his was concerned that he had taken an overdose, although he consistently denied that. In the ER yesterday, he reported poor sleep, worsening mood, worthlessness, anergia, a motivation, and a wish "to not be here." Labs notable for total bilirubin 1.2, glucose 102, TSH 0.732, negative UDS and UA. He signed in voluntarily. On my assessment today, he states he had a difficult conversation with his yesterday, as she was upset that he was feeling more depressed, told him he "has responsibilities, a job," and felt she was upset with him. He also spoke to his kids to let them know that he wasn't feeling well and needed to come get treatment. He feels safe here, and mood is 5/10, "pretty drained, just exhausted, feeling defeated." Feels safe here, supported by staff and peers. He denies specific stressors/triggers, thought he had fully recovered from last depressive episode in the spring, and mood worsened gradually over the past 1-2 months. Notes low motivation and energy. Marital issues are ongoing have been a constant problem since the spring. States he is "as honest with her as I can be," but she doesn't trust him to tell her when he's not doing well, but also gets upset when he tells he isn't doing well, and has told him she will leave if he gets depressed. He worries that is he tells her when mood symptoms are worsening, she might leave him. He has been working on this in therapy, trying to prioritize his life and getting well. He endorses guilt over his past actions, suicide attempts, hospitalizations, feeling so many people have helped support him when he was hospitalized before, and now he's back in the hospital. Feels guilty about "putting everyone else through this." He thinks the main issue is his depression, and anxiety is related to his depression (worries about the implications of having another depressive episode). He reports good medication compliance. Notes he and his have not been to marital counseling on about a month, due to scheduling difficulties (both work, have kids, son in football). He thought couples' counseling was helpful, but thinks his sees him as the one who needs to change, wanting him to be "be more there, more present," help around the house more, and "not be depressed." He agrees he has had difficulty "getting out of my head," and not feeling totally present either at home with family or at work. He falls asleep easily, sometimes wakes overnight, often early am and unable to fall back sleep, so has been more tired during the day. Past Psychiatric History Previous Psych History: Diagnosed with depression at age 18, with recurrent episodes since that time. Previously saw multiple clinicians at [facility], both psychiatrists and therapists. History of IOP in [place] for 6 weeks after second psychiatric hospitalization in 2008. Diagnoses include major depressive disorder, recurrent, severe without psychosis; generalized anxiety disorder, social phobia. Current Psychiatric Diagnosis: MDD Outpatient Services: Psychiatry: Dr. Corona at [facility] Therapy: Mireille Ernst at [facility] Marital counseling: Kade Muñoz Previous Psych Admissions: [facility] BHU: 10/2019 after a suicide attempt, 2008 ICU then BHU for OD on bleach and clonazepam, 2005 after overdose PPI 2008 after an overdose (that occurred 3 days after discharge from an [facility]). [place] 1999 Do You Have Access To A Gun?: Yes History of Previous Suicide Attempt: Yes ((10/2019 OD and CO poisoning, 11/2008 X2, 08/2005 OD, 05/2000 OD).) Describe Attempts in the Past: Overdose, toxic ingestion, CO poisoning Past Medication Trials: Paroxetine Trazodone -muscle twitches hydroxyzine - for sleep Bupropion SR Oxcarbazepine Allergies Allergy/AdvReac Type Severity Reaction Status Date / Time No Known Allergies Allergy Unknown Verified 03/19/20 10:50 Home Medications Home Medications Medication Instructions Recorded Confirmed Type sertraline 200 mg PO QAM 03/19/20 04/24/20 History aripiprazole 7.5 mg PO DAILY 04/25/20 04/25/20 History Family History Family History of: Doesn't Know Family Mental Health History Comment: Per outpatient records, father with a history of depression Alcohol History Hx of Alcohol Use Over the Past 12 Months: No AUDIT Total Score: 1 Smoking Use Have You Smoked or Used Tobacco Products in the Last 30 Days: No Smoking Status: Never smoker Substance History Hx of Prescription Med Misuse Over the Past 12 Months: No Hx of Over the Counter Med Misuse Over the Past 12 Months: No Hx of Inhalent Misuse Over the Past 12 Months: No Hx of Organic Substance Use Over the Past 12 Months: No Hx of Illegal Substances/Street Drug Use Over Past 12 Months: No Problems as a Result of Past Substance Use: None Identified Personal History Beliefs That Will Affect Care: None Hx Traumatic Life Events: No Patient History Medical History Anxiety Depression Surgical History No pertinent past surgical history Social History Smoking Status: Never smoker Preferred Language: Persian Communication Ability: Effective Hearing Ability: Normal Hardware Installer Required: No Beliefs That Will Affect Care: None marital status: current occupational status: employed 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 [employer] Feels Safe at Home: Yes Assistive Devices: Glasses Review of Systems Review of Systems: All systems reviewed & are unremarkable except as noted in Subjective Physical Exam Psychiatric: Orientation: alert and cooperative Apperance: appropriately dressed, appropriately groomed and appeared stated age Eye Contact: + fair eye contact Motor Behavior: steady gait and station and no abnormal motor movements Speech: normal rate/rhythm/volume of speech Affect: + depressed affect, + constricted affect and mood congruent with affect Mood: + depressed mood and + anxious mood Thought Process: goal directed thought process Thought Content: + worthlessness, + guilt and + self deprecation Suicidal Thoughts: + reports suicidal thoughts Homicidal Thoughts: denies homicidal thoughts Hallucinations: no auditory hallucinations and no visual hallucinations Cognition: recent memory grossly intact, remote memory grossly intact, attention grossly intact and language grossly intact Estimated Intelligence: consistent with education level Insight: good insight Judgement: good judgement Vital Signs (Past 24 Hours): Last Vital Signs Temp 36.5 C 04/25/20 06:33 Pulse 72 04/25/20 06:34 Resp 16 04/25/20 06:33 BP 109/78 04/25/20 06:34 Pulse Ox 98 04/24/20 14:20 Exam Statement: A physical exam was performed in the ER prior to admission to the unit by Dr. Dale Storey. I accept that physical as correct/medical mary darci for the inpatient physical exam. Results & Data ([facility]) Laboratory Results Laboratory Results - last 24 hr 04/24/20 04/24/20 04/24/20 12:20 12:20 12:26 WBC 5.23 RBC 4.56 L Hgb 14.2 Hct 41.6 L MCV 91.2 MCH 31.1 MCHC 34.1 RDW Std Deviation 41.9 RDW Coeff of Chloé 12.5 Plt Count 258 MPV 10.8 H Immature Gran % (Auto) 0.2 Neut % (Auto) 65.7 Lymph % (Auto) 26.0 [place] % (Auto) 6.7 Eos % (Auto) 0.6 Baso % (Auto) 0.8 Neut # (Auto) 3.44 Lymph # (Auto) 1.36 [place] # (Auto) 0.35 Eos # (Auto) 0.03 Baso # (Auto) 0.04 Immature Gran # (Auto) 0.01 Sodium Potassium Chloride Carbon Dioxide Anion Gap BUN Creatinine Est Cr Clr Drug Dosing Est GFR ( Amer) Est GFR (Non-Af Amer) BUN/Creatinine Ratio Glucose Calcium Total Bilirubin AST ALT Alkaline Phosphatase Total Protein Albumin Globulin Albumin/Globulin Ratio TSH Urine Color Yellow Urine Appearance Clear Urine pH 5.5 Ur Specific [place] 1.019 Urine Protein Negative Urine Glucose (UA) Negative Urine Ketones Negative Urine Blood Negative Urine Nitrite Negative Urine Bilirubin Negative Urine Urobilinogen Negative Ur Leukocyte Esterase Negative Salicylates Urine Opiates Screen Neg Ur Methadone, Qual Neg Acetaminophen Urine Barbiturates Neg Ur Phencyclidine (PCP) Neg U Amphetamin/Meth Scrn Neg MDMA (Ecstasy) Screen Neg U Benzodiazepines Scrn Neg Ur Cocaine Metabolite Neg U Marijuana (THC) Screen Neg Ethyl Alcohol mg/dL COVID-19 Eval Order SARS-CoV-2, RNA, NAAT 04/24/20 04/24/20 04/24/20 12:26 12:26 12:26 WBC RBC Hgb Hct MCV MCH MCHC RDW Std Deviation RDW Coeff of Chloé Plt Count MPV Immature Gran % (Auto) Neut % (Auto) Lymph % (Auto) [place] % (Auto) Eos % (Auto) Baso % (Auto) Neut # (Auto) Lymph # (Auto) [place] # (Auto) Eos # (Auto) Baso # (Auto) Immature Gran # (Auto) Sodium 139 Potassium 3.9 Chloride 106 Carbon Dioxide 28 Anion Gap 5.0 BUN 14 Creatinine 0.98 Est Cr Clr Drug Dosing 110.0 Est GFR ( Amer) 111.3 Est GFR (Non-Af Amer) 96.1 BUN/Creatinine Ratio 14.2 Glucose 102 H Calcium 9.2 Total Bilirubin 1.2 H AST 16 ALT 21 Alkaline Phosphatase 65 Total Protein 7.5 Albumin 4.2 Globulin 3.3 Albumin/Globulin Ratio 1.3 TSH 0.732 Urine Color Urine Appearance Urine pH Ur Specific [place] Urine Protein Urine Glucose (UA) Urine Ketones Urine Blood Urine Nitrite Urine Bilirubin Urine Urobilinogen Ur Leukocyte Esterase Salicylates < 1.7 L Urine Opiates Screen Ur Methadone, Qual Acetaminophen < 2 L Urine Barbiturates Ur Phencyclidine (PCP) U Amphetamin/Meth Scrn MDMA (Ecstasy) Screen U Benzodiazepines Scrn Ur Cocaine Metabolite U Marijuana (THC) Screen Ethyl Alcohol mg/dL < 3.0 COVID-19 Eval Order SARS-CoV-2, RNA, NAAT 04/24/20 04/24/20 12:35 12:35 WBC RBC Hgb Hct MCV MCH MCHC RDW Std Deviation RDW Coeff of Chloé Plt Count MPV Immature Gran % (Auto) Neut % (Auto) Lymph % (Auto) [place] % (Auto) Eos % (Auto) Baso % (Auto) Neut # (Auto) Lymph # (Auto) [place] # (Auto) Eos # (Auto) Baso # (Auto) Immature Gran # (Auto) Sodium Potassium Chloride Carbon Dioxide Anion Gap BUN Creatinine Est Cr Clr Drug Dosing Est GFR ( Amer) Est GFR (Non-Af Amer) BUN/Creatinine Ratio Glucose Calcium Total Bilirubin AST ALT Alkaline Phosphatase Total Protein Albumin Globulin Albumin/Globulin Ratio TSH Urine Color Urine Appearance Urine pH Ur Specific [place] Urine Protein Urine Glucose (UA) Urine Ketones Urine Blood Urine Nitrite Urine Bilirubin Urine Urobilinogen Ur Leukocyte Esterase Salicylates Urine Opiates Screen Ur Methadone, Qual Acetaminophen Urine Barbiturates Ur Phencyclidine (PCP) U Amphetamin/Meth Scrn MDMA (Ecstasy) Screen U Benzodiazepines Scrn Ur Cocaine Metabolite U Marijuana (THC) Screen Ethyl Alcohol mg/dL COVID-19 Eval Order Covid19 IDNow atMMOC SARS-CoV-2, RNA, NAAT NEGATIVE Current Inpatient Medications Current Inpatient Medications: Current Inpatient Medications Acetaminophen (Acetaminophen 325 Mg Tab) 650 mg PO Q4H PRN PRN Reason: Headache or Minor Fever Stop: 05/24/20 13:52 Al Hydrox/Mg Hydrox/Simethicone (Aluminum/Magnesium Susp 30 Ml Udc) 30 ml PO Q4H PRN PRN Reason: GI Upset Stop: 05/24/20 13:52 Aripiprazole (Aripiprazole 5 Mg Tab) 5 mg PO QAM [place]OSTA Stop: 05/25/20 08:59 Bismuth Subsalicylate (Bismuth Subsalicylate Liqd 236 Ml) 15 ml PO PRN PRN PRN Reason: Loose Stool Stop: 05/24/20 13:52 Hydroxyzine HCl (Hydroxyzine Hcl 25 Mg Tab) 50 mg PO HSZ PRN PRN Reason: Insomnia Stop: 05/24/20 13:52 Hydroxyzine HCl (Hydroxyzine Hcl 25 Mg Tab) 25 mg PO Q4H PRN PRN Reason: Anxiety Stop: 05/24/20 13:52 Magnesium Hydroxide (Magnesium Hydroxide Susp 30 Ml Udc) 30 ml PO DAILY PRN PRN Reason: Constipation Stop: 05/24/20 13:52 Sertraline HCl (Sertraline Hcl 100 Mg Tablet) 200 mg PO QAM [facility] Stop: 05/25/20 08:59 Sodium Chloride (Sodium Chloride 0.65% Na Soln 45 Ml ([place])) 1 - 2 sprays NA PRN PRN PRN Reason: Nasal Dryness/Congestion Stop: 05/24/20 13:52
[2020-04-25] MEDS ORDERED: SERTRALINE HCL 100 MG TABLET PO SCH (09:00)
[2020-04-25] MEDS ORDERED: ARIPiprazole 5 MG TAB PO SCH (09:00)
[2020-04-25] MEDS ORDERED: SERTRALINE HCL 50 MG TABLET PO ONE (10:56)
[2020-04-25] MEDS ORDERED: ARIPiprazole 5 MG TAB PO ONE (10:56)
[2020-04-26] MEDS: SERTRALINE HCL 100 MG TABLET PO SCH (08:56)
[2020-04-26] MEDS: ARIPiprazole 5 MG TAB PO SCH (08:57)
[2020-04-26 09:25] LABS: Glucose Fasting 94 mg/dl (70-99)
[2020-04-26 09:31] LABS: Chol HDL Ratio 4; Cholesterol 175 mg/dl (0-200); HDL Cholesterol 46 mg/dl; LDL Cholesterol Calculated 97 mg/dl; Triglycerides 159 mg/dl (0-150); VLDL Cholesterol 32 mg/dl
--- NOTE | 2020-04-26 11:02 | Psychiatric Progress Note ---
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 His primary stressor recently has been his depression itself, and the marital difficulties that to some degree have been centered around his depressive episodes and suicide attempt in the spring of this year. He and his had been in couples counseling for a couple of months, but have not gone in about a month due to scheduling difficulties. He is struggling with the guilt associated with having to be hospitalized again and feeling that he is not doing his part at home, as well as fears that his will leave him if he becomes depressed again. did inform the patient that he is not welcome to return home. Inpatient treatment is medically necessary due to the severity of his symptoms and risk for suicide if discharged. (1) Depression: 04/25 -reviewed diagnoses and treatment recommendations, including option to titrate sertraline and/or aripiprazole. We will start with maximizing his sertraline by increasing to 250 mg daily to target mood and anxiety symptoms. Consider further titration of aripiprazole; for now continue 7.5 mg daily. -Fasting labs for monitoring on an atypical antipsychotic: Performed during hospitalization in the spring, triglycerides 217 otherwise normal, and was scheduled for repeat labs this month, so will order them for tomorrow. -Schedule family meeting with his . -Coordinate care with his therapist and marital counselor. I have already informed Mireille of his hospitalization. -Encourage group attendance and participation. Work on healthy coping skills and discharge safety plan. Work on grounding techniques to assist him in remaining present, as this has been one of his primary struggles lately. -Sleep has been poor recently, side effects to trazodone, but hydroxyzine was helpful in the past so will offer 50 mg at bedtime as needed. 04/26 - Continue newly adjusted medication regimen - just increased to aripiprazole 7.5mg and sertraline 250mg this morning - Discussion held with , who states patient is not welcome home after discharge - Continue to encourage participation in group programming - Fasting labs obtained today and reviewed - triglycerides elevated at 159 (but reduced from most recent blood work), all other values WNL (2) Anxiety: 04/25 -increase SSRI as above, work on coping strategies Risk Factors Assessment Male: Yes Do You Have Access To A Gun?: Yes Health Problems: No Mental Health Diagnoses: Yes Substance Use Disorders: No Previous Attempt: Yes Previous Attempt; Highly Lethal: Yes Family History of Suicide: No Previous Psychiatric Hospitalization: Yes Hopelessness: Yes Smoker: No Protective Factors Assessment : Yes Responsible for Young Children: Yes Employed: Yes Supportive Family: Yes Good Rapport with Provider: Yes Interval History Identifying Information DAVE MICHELE is a 40-year-old M who currently lives in [place] with his and children, has a history of recurrent depression and anxiety, and was admitted on 04/24/20 13:54 on a 201 voluntary commitment for worsening depression and anxiety with suicidal thoughts. Chief Complaint "I'm not in a good place right now, mentally." Review of Systems Notes Constitutional: reports fatigue Cardiovascular: denied Respiratory: denied Gastrointestinal: denied Neurological: denied Psychiatric: denies symptoms other than stated above Total of at least 10 systems reviewed, pertinent positives as above and in HPI. Sleep Information Total Hours of Sleep: 6.5 Sleep Comments: pt on q-15 minute checks Meal Information Percent Meal Consumed - Breakfast: 90 Percent Meal Consumed - Lunch: 100 Percent Meal Consumed - Dinner: 100 Subjective Subjective Patient was seen & assessed and interval progress reviewed with nursing and social work. Staff report the patient has been participating in group programming. He received a difficult call from his , who suggested the patient is not welcome home on discharge. Pt rated his mood a 2/10 and "overwhelmed" last evening. Pt was seen today to assess progress since admission. Pt states "I'm not in a good place right now, mentally." Pt states that he had a difficult meeting with his , who "was pretty clear I wasn't allowed home. 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 Pt states he is less inclined to consider PHP/IOP as "I don't think I need any extra outpatient things, I mean, I already have a really great therapist and doctor. I just am not really sure that it makes the most sense for me." Pt denies SI, even in the setting of learning he was not welcome home. Instead, he states "I would describe it as feeling, sad. Just very deep sadness." Pt states he is conflicted and is having some regret but also confusion. He states "I just keep thinking about how I could have done things differently. 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 Pt denied other needs or concerns today. Physical Exam Psychiatric Orientation: alert, oriented x 3 and cooperative Apperance: appropriately dressed, appropriately groomed and appeared stated age Eye Contact: good eye contact Motor Behavior: steady gait and station and no abnormal motor movements (though somewhat restless, fidgeting) Speech: normal rate/rhythm/volume of speech Affect: + depressed affect, + anxious affect and + tearful affect Mood: + depressed mood ("just sad") Thought Process: goal directed thought process and clear/coherent thought process Thought Content: + guilt and + self deprecation reports "pessimistic thoughts" Suicidal Thoughts: denies suicidal thoughts and denies suicidal intent but does report "pessimistic thoughts" Homicidal Thoughts: denies homicidal thoughts Hallucinations: no auditory hallucinations and no visual hallucinations Cognition: recent memory grossly intact, attention grossly intact and language grossly intact Estimated Intelligence: consistent with education level Insight: good insight Judgement: good judgement Vital Signs (Past 24 Hours) Last Vital Signs Temp 36.6 C 04/26/20 06:45 Pulse 98 H 04/26/20 06:45 Resp 16 04/26/20 06:45 BP 114/82 04/26/20 06:45 Pulse Ox 98 04/24/20 14:20 Results & Data ([facility]) Laboratory Results Laboratory Results - last 24 hr 04/26/20 08:52 Fasting Glucose 94 Triglycerides 159 H Cholesterol 175 LDL Cholesterol, Calc 97 VLDL Cholesterol, Calc 32 HDL Cholesterol 46 Cholesterol/HDL Ratio 4 Current Inpatient Medications Current Inpatient Medications: Current Inpatient Medications Acetaminophen (Acetaminophen 325 Mg Tab) 650 mg PO Q4H PRN PRN Reason: Headache or Minor Fever Stop: 05/24/20 13:52 Al Hydrox/Mg Hydrox/Simethicone (Aluminum/Magnesium Susp 30 Ml Udc) 30 ml PO Q4H PRN PRN Reason: GI Upset Stop: 05/24/20 13:52 Aripiprazole (Aripiprazole 5 Mg Tab) 7.5 mg PO QAM KOSTA Stop: 05/26/20 08:59 Last Admin: 04/26/20 08:57 Dose: 7.5 mg Documented by: Bismuth Subsalicylate (Bismuth Subsalicylate Liqd 236 Ml) 15 ml PO PRN PRN PRN Reason: Loose Stool Stop: 05/24/20 13:52 Hydroxyzine HCl (Hydroxyzine Hcl 25 Mg Tab) 50 mg PO HSZ PRN PRN Reason: Insomnia Stop: 05/24/20 13:52 Hydroxyzine HCl (Hydroxyzine Hcl 25 Mg Tab) 25 mg PO Q4H PRN PRN Reason: Anxiety Stop: 05/24/20 13:52 Magnesium Hydroxide (Magnesium Hydroxide Susp 30 Ml Udc) 30 ml PO DAILY PRN PRN Reason: Constipation Stop: 05/24/20 13:52 Sertraline HCl (Sertraline Hcl 100 Mg Tablet) 250 mg PO QAM KOST[place] Stop: 05/26/20 08:59 Last Admin: 04/26/20 08:56 Dose: 250 mg Documented by: Sodium Chloride (Sodium Chloride 0.65% Na Soln 45 Ml ([place])) 1 - 2 sprays NA PRN PRN PRN Reason: Nasal Dryness/Congestion Stop: 05/24/20 13:52 Mental Health & Subst Abuse Tx Psychiatrist Date of Appointment with Psychiatrist: 05/03/20 Therapist Name of Therapist: Mireille Ernst Date of Therapist Appointment: 04/28/20 Time of Therapist Appointment: 1400pm Post Discharge Appointments Primary Care Physician Name Of Family Doctor: Kavin Harden (1) Depression Active/Remission status: currently active Depression Type: major depressive disorder Major depression episode severity: severe Major depression recurrence: recurrent Psychotic features: without psychotic features Qualified Code(s): F33.2 - Major depressive disorder, recurrent severe without psychotic features
--- NOTE | 2020-04-27 08:49 | Psychiatric Progress Note ---
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 His primary stressor recently has been his depression itself, and the marital difficulties that to some degree are related to his depressive episodes and suicide attempt in the spring of this year. He and his had been in couples counseling for a couple of months, but have not gone in about a month due to scheduling difficulties, and his has now informed him he is not welcome to return home, and she may want to end the marriage. He is struggling with the guilt associated with having to be hospitalized again and feeling that he is not doing his part at home, as well as fears that his will leave him. Inpatient treatment is medically necessary due to the severity of his symptoms and risk for suicide if discharged. (1) Depression: 04/25 -reviewed diagnoses and treatment recommendations, including option to titrate sertraline and/or aripiprazole. We will start with maximizing his sertraline by increasing to 250 mg daily to target mood and anxiety symptoms. Consider further titration of aripiprazole; for now continue 7.5 mg daily. -Fasting labs for monitoring on an atypical antipsychotic: Performed during hospitalization in the spring, triglycerides 217 otherwise normal, and was scheduled for repeat labs this month, so will order them for tomorrow. -Schedule family meeting with his . -Coordinate care with his therapist and marital counselor. I have already informed Mireille of his hospitalization. -Encourage group attendance and participation. Work on healthy coping skills and discharge safety plan. Work on grounding techniques to assist him in remaining present, as this has been one of his primary struggles lately. -Sleep has been poor recently, side effects to trazodone, but hydroxyzine was helpful in the past so will offer 50 mg at bedtime as needed. 04/26 - Continue newly adjusted medication regimen - just increased to aripiprazole 7.5mg and sertraline 250mg this morning - Discussion held with , who states patient is not welcome home after discharge - Continue to encourage participation in group programming - Fasting labs obtained today and reviewed - triglycerides elevated at 159 (but reduced from most recent blood work), all other values WNL 04/27 -Continue current medications, groups, and therapy. Patient is working on an alternative discharge plan, will be going to stay with parents in the [place] area. He is willing for PHP programs there, looking into [facility]. -Family meeting with parents prior to discharge, and consider if it would be beneficial to have a meeting with , largely to focus on how they will communicate, coparent, and how he will communicate with his children in the short-term following discharge. (2) Anxiety: 04/25 -increase SSRI as above, work on coping strategies Risk Factors Assessment Male: Yes Do You Have Access To A Gun?: Yes Health Problems: No Mental Health Diagnoses: Yes Substance Use Disorders: No Previous Attempt: Yes Previous Attempt; Highly Lethal: Yes Family History of Suicide: No Previous Psychiatric Hospitalization: Yes Hopelessness: Yes Smoker: No Protective Factors Assessment : Yes Responsible for Young Children: Yes Employed: Yes Supportive Family: Yes Good Rapport with Provider: Yes Interval History Identifying Information DAVE MICHELE is a 40-year-old M who currently lives in [place] with his and children, has a history of recurrent depression and anxiety, and was admitted on 04/24/20 13:54 on a 201 voluntary commitment for worsening depression and anxiety with suicidal thoughts. Chief Complaint "Had a really tough day". Review of Systems Sleep Information Total Hours of Sleep: 7.5 Sleep Comments: Patient slept 0.5 hours prior to 0000. Meal Information Percent Meal Consumed - Breakfast: 100 Percent Meal Consumed - Lunch: 100 Percent Meal Consumed - Dinner: 100 Subjective Subjective Patient was seen & assessed and interval progress reviewed with treatment team. Staff report he remains depressed, processing his multiple stressors. On my assessment, he reports he's had "really tough days" the past two days, due to his telling him he can't return home and she may want to end the marriage. 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 He is also looking into a partial program his parents found, [facility], and says he thinks his wants him to get more intensive treatment, hoping that he might then be able to come home. He has talked to his daily and feels their conversations have been calmer, but initially she was angry. He also talked to his oldest son last night. He feels his has been "more understanding" during their recent conversations, and that she might be open to a meeting. Discussed things they could address, he thinks it would be helpful to talk about the immediate future and how they'll communicate, how he'll communicate with kids, etc while he's at his parents. He denies SI, but reports mood is still low and he has guilt, negative thoughts, "regrets." Sleep is fair, waking several times overnight. Appetite is good, and denies side effects to medication. He likes the groups and thinks they are helpful. Physical Exam Psychiatric Orientation: alert, oriented x 3 and cooperative Apperance: appropriately dressed, appropriately groomed and appeared stated age Eye Contact: + fair eye contact Motor Behavior: steady gait and station and no abnormal motor movements Speech: normal rate/rhythm/volume of speech Affect: + depressed affect and mood congruent with affect "It's been rough, may be a little better today." Thought Process: goal directed thought process Thought Content: + hopelessness and + guilt Suicidal Thoughts: denies suicidal thoughts Homicidal Thoughts: denies homicidal thoughts Hallucinations: no auditory hallucinations Cognition: recent memory grossly intact, attention grossly intact and language grossly intact Estimated Intelligence: consistent with education level Insight: + fair insight Judgement: + fair judgement Vital Signs (Past 24 Hours) Last Vital Signs Temp 36.5 C 04/27/20 06:39 Pulse 81 04/27/20 06:40 Resp 16 04/27/20 06:39 BP 114/84 04/27/20 06:40 Pulse Ox 98 04/24/20 14:20 Results & Data ([facility]) Laboratory Results Laboratory Results - last 24 hr 04/26/20 08:52 Fasting Glucose 94 Triglycerides 159 H Cholesterol 175 LDL Cholesterol, Calc 97 VLDL Cholesterol, Calc 32 HDL Cholesterol 46 Cholesterol/HDL Ratio 4 Current Inpatient Medications Current Inpatient Medications: Current Inpatient Medications Acetaminophen (Acetaminophen 325 Mg Tab) 650 mg PO Q4H PRN PRN Reason: Headache or Minor Fever Stop: 05/24/20 13:52 Al Hydrox/Mg Hydrox/Simethicone (Aluminum/Magnesium Susp 30 Ml Udc) 30 ml PO Q4H PRN PRN Reason: GI Upset Stop: 05/24/20 13:52 Aripiprazole (Aripiprazole 5 Mg Tab) 7.5 mg PO QAM KOSTA Stop: 05/26/20 08:59 Last Admin: 04/26/20 08:57 Dose: 7.5 mg Documented by: Bismuth Subsalicylate (Bismuth Subsalicylate Liqd 236 Ml) 15 ml PO PRN PRN PRN Reason: Loose Stool Stop: 05/24/20 13:52 Hydroxyzine HCl (Hydroxyzine Hcl 25 Mg Tab) 50 mg PO HSZ PRN PRN Reason: Insomnia Stop: 05/24/20 13:52 Hydroxyzine HCl (Hydroxyzine Hcl 25 Mg Tab) 25 mg PO Q4H PRN PRN Reason: Anxiety Stop: 05/24/20 13:52 Magnesium Hydroxide (Magnesium Hydroxide Susp 30 Ml Udc) 30 ml PO DAILY PRN PRN Reason: Constipation Stop: 05/24/20 13:52 Sertraline HCl (Sertraline Hcl 100 Mg Tablet) 250 mg PO QAM KOSTA Stop: 05/26/20 08:59 Last Admin: 04/26/20 08:56 Dose: 250 mg Documented by: Sodium Chloride (Sodium Chloride 0.65% Na Soln 45 Ml ([place])) 1 - 2 sprays NA PRN PRN PRN Reason: Nasal Dryness/Congestion Stop: 05/24/20 13:52 Mental Health & Subst Abuse Tx Psychiatrist Date of Appointment with Psychiatrist: 05/03/20 Therapist Name of Therapist: Mireille Ernst Date of Therapist Appointment: 04/28/20 Time of Therapist Appointment: 1400pm Post Discharge Appointments Primary Care Physician Name Of Family Doctor: Kavin Harden (1) Depression Active/Remission status: currently active Depression Type: major depressive disorder Major depression episode severity: severe Major depression recurrence: recurrent Psychotic features: without psychotic features Qualified Code(s): F33.2 - Major depressive disorder, recurrent severe without psychotic features
[2020-04-27] MEDS: ARIPiprazole 5 MG TAB PO SCH (09:27)
[2020-04-27] MEDS: SERTRALINE HCL 100 MG TABLET PO SCH (09:28)
[2020-04-28] MEDS: ARIPiprazole 5 MG TAB PO SCH (09:17)
[2020-04-28] MEDS: SERTRALINE HCL 100 MG TABLET PO SCH (09:17)
--- NOTE | 2020-04-28 13:32 | Psychiatric Progress Note ---
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 His primary stressor recently has been his depression itself, and the marital difficulties that to some degree are related to his depressive episodes and suicide attempt in the spring of this year. He and his had been in couples counseling for a couple of months, but have not gone in about a month due to scheduling difficulties, and his has now informed him he is not welcome to return home, and she may want to end the marriage. He is struggling with the guilt associated with having to be hospitalized again and feeling that he is not doing his part at home, as well as fears that his will leave him. Inpatient treatment is medically necessary due to the severity of his symptoms and risk for suicide if discharged. (1) Depression: 04/25 -reviewed diagnoses and treatment recommendations, including option to titrate sertraline and/or aripiprazole. We will start with maximizing his sertraline by increasing to 250 mg daily to target mood and anxiety symptoms. Consider further titration of aripiprazole; for now continue 7.5 mg daily. -Fasting labs for monitoring on an atypical antipsychotic: Performed during hospitalization in the spring, triglycerides 217 otherwise normal, and was scheduled for repeat labs this month, so will order them for tomorrow. -Schedule family meeting with his . -Coordinate care with his therapist and marital counselor. I have already informed Mireille of his hospitalization. -Encourage group attendance and participation. Work on healthy coping skills and discharge safety plan. Work on grounding techniques to assist him in remaining present, as this has been one of his primary struggles lately. -Sleep has been poor recently, side effects to trazodone, but hydroxyzine was helpful in the past so will offer 50 mg at bedtime as needed. 04/26 - Continue newly adjusted medication regimen - just increased to aripiprazole 7.5mg and sertraline 250mg this morning - Discussion held with , who states patient is not welcome home after discharge - Continue to encourage participation in group programming - Fasting labs obtained today and reviewed - triglycerides elevated at 159 (but reduced from most recent blood work), all other values WNL 04/27 -Continue current medications, groups, and therapy. Patient is working on an alternative discharge plan, will be going to stay with parents in the [place] area. He is willing for [facility] programs there, looking into [facility]. -Family meeting with parents prior to discharge, and consider if it would be beneficial to have a meeting with , largely to focus on how they will communicate, coparent, and how he will communicate with his children in the short-term following discharge. 04/27 - Continue current medication regimen. - Patient reports that his depressive symptoms, including mood and worry patient, have been improving gradually especially after setting up his aftercare plan and he is highly motivated and future oriented today. 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 (2) Anxiety: 04/25 -increase SSRI as above, work on coping strategies Risk Factors Assessment Male: Yes Do You Have Access To A Gun?: Yes Health Problems: No Mental Health Diagnoses: Yes Substance Use Disorders: No Previous Attempt: Yes Previous Attempt; Highly Lethal: Yes Family History of Suicide: No Previous Psychiatric Hospitalization: Yes Hopelessness: Yes Smoker: No Protective Factors Assessment : Yes Responsible for Young Children: Yes Employed: Yes Supportive Family: Yes Good Rapport with Provider: Yes Interval History Identifying Information DAVE MICHELE is a 40-year-old M who currently lives in [place] with his and children, has a history of recurrent depression and anxiety, and was admitted on 04/24/20 13:54 on a 201 voluntary commitment for worsening depression and anxiety with suicidal thoughts. Chief Complaint "I feel relieved after setting up my aftercare plan". Review of Systems Notes Constitutional: denied cardiovascular: denied Respiratory: denied GI: denied Neurologic: denied Psychiatric: denies symptoms other than stated above Remainder of 10 body systems also reviewed and denied other than noted above. Sleep Information Total Hours of Sleep: 7 Sleep Comments: Patient slept 0.5 hours prior to 0000. Meal Information Percent Meal Consumed - Breakfast: 100 Percent Meal Consumed - Lunch: 100 Percent Meal Consumed - Dinner: 100 Subjective Subjective Patient was seen and assessed and interval progress reviewed with nursing and social work. Staff report the patient has been participating in group programmi ng. He has been doing better and he had good conversations with his and his sons yesterday. Also an initial intake appointment with [facility] set up for [facility] on May 03. Patient rated his mood 7/10 and "hopeful " last evening. Patient was seen today to assess progress since admission. Patient reports that he's been feeling much relieved after setting up his aftercare plan yesterday. He states that he has been talking with his daily and their conversations have been calmer and more productive. He feels slightly anxious this morning since he will have a family meeting with his and a social services technician this afternoon but he thinks everything has been on the right track at this point. He talked with his 13-year-old and 10-year-old sons yesterday and they understand he cannot come back home right after discharge and they want him to come back when he gets better. His mood has been getting better gradually too, considering his mood was 2/10 on Saturday. Also his motivation has been going up gradually and he thinks this is a good sign for him. Sleep has been good even though he wakes up multiple times a night but he can fall back asleep within 15 minutes. Appetite has been good. 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 Denies SI. Patient denies other needs or concerns today. Physical Exam Psychiatric Orientation: alert and oriented x 3 Apperance: appropriately dressed and appropriately groomed Eye Contact: good eye contact Motor Behavior: steady gait and station and no abnormal motor movements Speech: normal rate/rhythm/volume of speech Affect: + depressed affect, + anxious affect and + flat affect Mood: + depressed mood and + anxious mood Thought Process: goal directed thought process, linear/logical thought process, clear/coherent thought process and thought association intact Thought Content: reality based without delusions; no hopelessness Suicidal Thoughts: denies suicidal thoughts and denies suicidal intent Homicidal Thoughts: denies homicidal thoughts Hallucinations: no auditory hallucinations and no visual hallucinations Cognition: recent memory grossly intact, remote memory grossly intact, attention grossly intact and language grossly intact Estimated Intelligence: consistent with education level Insight: good insight Judgement: good judgement Vital Signs (Past 24 Hours) Last Vital Signs Temp 36.5 C 04/28/20 06:18 Pulse 91 H 04/28/20 06:18 Resp 17 04/28/20 06:18 BP 110/72 04/28/20 06:18 Pulse Ox 98 04/24/20 14:20 Results & Data ([facility]) Current Inpatient Medications Current Inpatient Medications: Current Inpatient Medications Acetaminophen (Acetaminophen 325 Mg Tab) 650 mg PO Q4H PRN PRN Reason: Headache or Minor Fever Stop: 05/24/20 13:52 Al Hydrox/Mg Hydrox/Simethicone (Aluminum/Magnesium Susp 30 Ml Udc) 30 ml PO Q4H PRN PRN Reason: GI Upset Stop: 05/24/20 13:52 Aripiprazole (Aripiprazole 5 Mg Tab) 7.5 mg PO QAM KOSTA Stop: 05/26/20 08:59 Last Admin: 04/28/20 09:17 Dose: 7.5 mg Documented by: Bismuth Subsalicylate (Bismuth Subsalicylate Liqd 236 Ml) 15 ml PO PRN PRN PRN Reason: Loose Stool Stop: 05/24/20 13:52 Hydroxyzine HCl (Hydroxyzine Hcl 25 Mg Tab) 50 mg PO HSZ PRN PRN Reason: Insomnia Stop: 05/24/20 13:52 Hydroxyzine HCl (Hydroxyzine Hcl 25 Mg Tab) 25 mg PO Q4H PRN PRN Reason: Anxiety Stop: 05/24/20 13:52 Magnesium Hydroxide (Magnesium Hydroxide Susp 30 Ml Udc) 30 ml PO DAILY PRN PRN Reason: Constipation Stop: 05/24/20 13:52 Sertraline HCl (Sertraline Hcl 100 Mg Tablet) 250 mg PO QAM KOSTA Stop: 05/26/20 08:59 Last Admin: 04/28/20 09:17 Dose: 250 mg Documented by: Sodium Chloride (Sodium Chloride 0.65% Na Soln 45 Ml ([place])) 1 - 2 sprays NA PRN PRN PRN Reason: Nasal Dryness/Congestion Stop: 05/24/20 13:52 Mental Health & Subst Abuse Tx Psychiatrist Name of Psychiatrist: Elia Corona Psychiatrist's Date of Appointment with Psychiatrist: 05/03/20 Time of Appointment with Psychiatrist: 3:50 p.m. Psychiatric Appointment Comment: Via Zoom Therapist Name of Therapist: Elia Ernst Therapist's Date of Therapist Appointment: 05/05/20 Time of Therapist Appointment: 11:00 a.m. Therapy Appointment Comment: Via Zoom Post Discharge Appointments Primary Care Physician Name Of Family Doctor: Megan Harden Primary Care Provider Appointment Comment: Please follow up as needed Partial or Psych Rehab Name of Partial or Psych Rehab: [facility] Phone Number of Partial or Psych Rehab: [phone] Date of Appointment at Partial or Psych Rehab: 05/03/20 Time of Appointment at Partial or Psych Rehab: 1:30pm Partial or Psych Rehab Appointment Comment: [address] [facility] [address] [facility], [place] Contact Information Discharge (1) Depression Depression Type: major depressive disorder Major depression recurrence: rec urrent Active/Remission status: currently active Major depression episode severity: severe Psychotic features: without psychotic features Qualified Code(s): F33.2 - Major depressive disorder, recurrent severe without psychotic features
--- NOTE | 2020-04-29 08:47 | Psychiatric Progress Note ---
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 His primary stressor recently has been his depression itself, and the marital difficulties that to some degree are related to his depressive episodes and suicide attempt in the spring of this year. He and his had been in couples counseling for a couple of months, but have not gone in about a month due to scheduling difficulties, and his has now informed him he is not welcome to return home, and she may want to end the marriage. He is struggling with the guilt associated with having to be hospitalized again and feeling that he is not doing his part at home, as well as fears that his will leave him. Inpatient treatment is medically necessary due to the severity of his symptoms and risk for suicide if discharged. (1) Depression: 04/25 -reviewed diagnoses and treatment recommendations, including option to titrate sertraline and/or aripiprazole. We will start with maximizing his sertraline by increasing to 250 mg daily to target mood and anxiety symptoms. Consider further titration of aripiprazole; for now continue 7.5 mg daily. -Fasting labs for monitoring on an atypical antipsychotic: Performed during hospitalization in the spring, triglycerides 217 otherwise normal, and was scheduled for repeat labs this month, so will order them for tomorrow. -Schedule family meeting with his . -Coordinate care with his therapist and marital counselor. I have already informed Mireille of his hospitalization. -Encourage group attendance and participation. Work on healthy coping skills and discharge safety plan. Work on grounding techniques to assist him in remaining present, as this has been one of his primary struggles lately. -Sleep has been poor recently, side effects to trazodone, but hydroxyzine was helpful in the past so will offer 50 mg at bedtime as needed. 04/26 - Continue newly adjusted medication regimen - just increased to aripiprazole 7.5mg and sertraline 250mg this morning - Discussion held with , who states patient is not welcome home after discharge - Continue to encourage participation in group programming - Fasting labs obtained today and reviewed - triglycerides elevated at 159 (but reduced from most recent blood work), all other values WNL 04/27 -Continue current medications, groups, and therapy. Patient is working on an alternative discharge plan, will be going to stay with parents in the [place] area. He is willing for PHP programs there, looking into [facility]. -Family meeting with parents prior to discharge, and consider if it would be beneficial to have a meeting with , largely to focus on how they will communicate, coparent, and how he will communicate with his children in the short-term following discharge. 04/27 - Continue current medication regimen. - Patient reports that his depressive symptoms, including mood and motivation, have been improving gradually especially after setting up his aftercare plan and he is highly motivated and future oriented today. 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 04/28 - Continue current medication regimen- aripiprazole 7.5 mg and sertraline 250 mg. - Patient reports that his mood has been good, up to 6-8/10 from 08/17 before admission, for the past 2-3 days and he is ready to be discharged to focus more on his mood through scheduled PHP and continuous medication management in the outpatient setting. - His safety plan completed and reviewed. His aftercare plan set up. - His parents will be able to pick him up around 1 pm tomorrow. (2) Anxiety: 04/25 -increase SSRI as above, work on coping strategies Risk Factors Assessment Male: Yes Do You Have Access To A Gun?: Yes Health Problems: No Mental Health Diagnoses: Yes Substance Use Disorders: No Previous Attempt: Yes Previous Attempt; Highly Lethal: Yes Family History of Suicide: No Previous Psychiatric Hospitalization: Yes Hopelessness: Yes Smoker: No Protective Factors Assessment : Yes Responsible for Young Children: Yes Employed: Yes Supportive Family: Yes Good Rapport with Provider: Yes Interval History Identifying Information DAVE MICHELE is a 40-year-old M who currently lives in [place] with his and children, has a history of recurrent depression and anxiety, and was admitted on 04/24/20 13:54 on a 201 voluntary commitment for worsening depression and anxiety with suicidal thoughts. Chief Complaint "I'm ready for the next step". Review of Systems Notes Constitutional: denied cardiovascular: denied Respiratory: denied GI: denied Neurologic: denied Psychiatric: denies symptoms other than stated above Remainder of 10 body systems also reviewed and denied other than noted above. Sleep Information Total Hours of Sleep: 6.5 Sleep Comments: Patient slept 0.5 hours prior to 0000. Meal Information Percent Meal Consumed - Breakfast: 100 Percent Meal Consumed - Lunch: 100 Percent Meal Consumed - Dinner: 100 Subjective Subjective Patient was seen & assessed and interval progress reviewed with treatment team. Staff report the patient has been participating in group programming and interacting with peers appropriately. He had a phone call with his children last night. Patient rated his mood a 8/10 and "hopeful" last evening. Patient was seen today to assess progress since admission. He states that he is ready for the next step. His mood has been okay up to a 6-8/10 for the past 2-3 days consistently and he feels he is more motivated. He hasn't had passive/active suicidal thoughts at all for the past couple of days. His anxiety also has been normal amount but he admits that it will be increased tomorrow when he is di scharged because everything will be new. However, he doesn't think the remote teaching or staying with his parents will be stressful and he feels supported by his work and family members. He states that his meeting with his yesterday went "well." He reports that she was not angry or upset and they could make conversations without emotional upset. He is happy that he can see his sons through Zoom while staying in [place]. When he was asked about his marriage, he states that he might be back to his family in [place] within a couple of months or he might not be but he will be okay in either way at this point and he wants to focus on his mental illness first. He finished his safety plan and it was reviewed. His parents have been coming back from [place] from their vacation and they will be able to pick him up tomorrow at 1 pm. Sleep has gotten better since being admitted. Patient denies other needs or concerns today. Physical Exam Psychiatric Orientation: alert and oriented x 3 Apperance: appropriately dressed, appropriately groomed and appeared stated age Eye Contact: good eye contact Motor Behavior: steady gait and station and no abnormal motor movements Speech: normal rate/rhythm/volume of speech Affect: + flat affect and + blunted affect Mood: + depressed mood (improving much for the past 2-3 days) Thought Process: goal directed thought process, linear/logical thought process, clear/coherent thought process and thought association intact Thought Content: reality based without delusions; no hopelessness Suicidal Thoughts: denies suicidal thoughts Homicidal Thoughts: denies homicidal thoughts Hallucinations: no auditory hallucinations and no visual hallucinations Cognition: recent memory grossly intact, remote memory grossly intact, attention grossly intact and language grossly intact Estimated Intelligence: average estimated intelligence Insight: good insight Judgement: good judgement Vital Signs (Past 24 Hours) Last Vital Signs Temp 36.6 C 04/29/20 06:00 Pulse 87 04/29/20 06:17 Resp 18 04/29/20 06:00 BP 111/80 04/29/20 06:17 Pulse Ox 98 04/24/20 14:20 Results & Data ([facility]) Current Inpatient Medications Current Inpatient Medications: Current Inpatient Medications Acetaminophen (Acetaminophen 325 Mg Tab) 650 mg PO Q4H PRN PRN Reason: Headache or Minor Fever Stop: 05/24/20 13:52 Al Hydrox/Mg Hydrox/Simethicone (Aluminum/Magnesium Susp 30 Ml Udc) 30 ml PO Q4H PRN PRN Reason: GI Upset Stop: 05/24/20 13:52 Aripiprazole (Aripiprazole 5 Mg Tab) 7.5 mg PO QAM KOSTA Stop: 05/26/20 08:59 Last Admin: 04/28/20 09:17 Dose: 7.5 mg Documented by: Bismuth Subsalicylate (Bismuth Subsalicylate Liqd 236 Ml) 15 ml PO PRN PRN PRN Reason: Loose Stool Stop: 05/24/20 13:52 Hydroxyzine HCl (Hydroxyzine Hcl 25 Mg Tab) 50 mg PO HSZ PRN PRN Reason: Insomnia Stop: 05/24/20 13:52 Hydroxyzine HCl (Hydroxyzine Hcl 25 Mg Tab) 25 mg PO Q4H PRN PRN Reason: Anxiety Stop: 05/24/20 13:52 Magnesium Hydroxide (Magnesium Hydroxide Susp 30 Ml Udc) 30 ml PO DAILY PRN PRN Reason: Constipation Stop: 05/24/20 13:52 Sertraline HCl (Sertraline Hcl 100 Mg Tablet) 250 mg PO QAM KOSTA Stop: 05/26/20 08:59 Last Admin: 04/28/20 09:17 Dose: 250 mg Documented by: Sodium Chloride (Sodium Chloride 0.65% Na Soln 45 Ml ([place])) 1 - 2 sprays NA PRN PRN PRN Reason: Nasal Dryness/Congestion Stop: 05/24/20 13:52 Mental Health & Subst Abuse Tx Psychiatrist Name of Psychiatrist: Elia [facility] [place] Paty Corona Psychiatrist's Date of Appointment with Psychiatrist: 05/03/20 Time of Appointment with Psychiatrist: 3:50 p.m. Psychiatric Appointment Comment: Via Zoom Therapist Name of Therapist: [email or web address] [place] Paty EricksonCharismaKae Ernst Therapist's Date of Therapist Appointment: 05/05/20 Time of Therapist Appointment: 11:00 a.m. Therapy Appointment Comment: Via Zoom Post Discharge Appointments Primary Care Physician Name Of Family Doctor: Megan Harden Primary Care Provider Appointment Comment: Please follow up as needed Partial or Psych Rehab Name of Partial or Psych Rehab: [facility] Phone Number of Partial or Psych Rehab: [phone] Date of Appointment at Partial or Psych Rehab: 05/03/20 Time of Appointment at Partial or Psych Rehab: 1:30pm Partial or Psych Rehab Appointment Comment: [id number] [facility] [address], [place] Contact Information Discharge (1) Depression Active/Remission status: currently active Depression Type: major depressive disorder Major depression episode severity: severe Major depression recurrence: recurrent Psychotic features: without psychotic features Qualified Code(s): F33.2 - Major depressive disorder, recurrent severe without psychotic features
[2020-04-29] MEDS: ARIPiprazole 5 MG TAB PO SCH (09:04)
[2020-04-29] MEDS: SERTRALINE HCL 100 MG TABLET PO SCH (09:05)
[2020-04-30] MEDS: SERTRALINE HCL 100 MG TABLET PO SCH (09:09)
[2020-04-30] MEDS: ARIPiprazole 5 MG TAB PO SCH (09:10)
--- NOTE | 2020-04-30 10:01 | Discharge Summary ---
Date of Service April 30, 2020 History of Present Illness I see Cortez in the outpatient clinic at [facility], and he called my emergency line yesterday to report worsening depressive and anxiety symptoms over the past 1-2 weeks, with thoughts that he would be better off . He did not feel safe at home, as he has a history of multiple very impulsive and serious suicide attempts, which he was most recently hospitalized for on our unit in October-November 2019, and was concerned that he would impulsively do something to end his life. There is been significant marital stress, and he and his have been in couples counseling for several months. His mood had improved after his hospitalization in the spring, but he continues to struggle with episodic depressive and anxiety symptoms. He has been on sertraline for years and was started on aripiprazole during his most recent hospitalization, and the dose was increased to 7.5 mg daily last month. He was seen in the ER 03/19/2020 after he awoke from a nap feeling dizzy and sweaty, and his was concerned that he had taken an overdose, although he consistently denied that. In the ER yesterday, he reported poor sleep, worsening mood, worthlessness, anergia, a motivation, and a wish "to not be here." Labs notable for total bilirubin 1.2, glucose 102, TSH 0.732, negative UDS and UA. He signed in voluntarily. On my assessment today, he states he had a difficult conversation with his yesterday, as she was upset that he was feeling more depressed, told him he "has responsibilities, a job," and felt she was upset with him. He also spoke to his kids to let them know that he wasn't feeling well and needed to come get treatment. He feels safe here, and mood is 5/10, "pretty drained, just exhausted, feeling defeated." Feels safe here, supported by staff and peers. He denies specific stressors/triggers, thought he had fully recovered from last depressive episode in the spring, and mood worsened gradually over the past 1-2 months. Notes low motivation and energy. Marital issues are ongoing have been a constant problem since the spring. States he is "as honest with her as I can be," but she doesn't trust him to tell her when he's not doing well, but also gets upset when he tells he isn't doing well, and has told him she will leave if he gets depressed. He worries that is he tells her when mood symptoms are worsening, she might leave him. He has been working on this in therapy, trying to prioritize his life and getting well. He endorses guilt over his past actions, suicide attempts, hospitalizations, feeling so many people have helped support him when he was hospitalized before, and now he's back in the hospital. Feels guilty about "putting everyone else through this." He thinks the main issue is his depression, and anxiety is related to his depression (worries about the implications of having another depressive episode). He reports good medication compliance. Notes he and his have not been to marital counseling on about a month, due to scheduling difficulties (both work, have kids, son in football). He thought couples' counseling was helpful, but thinks his sees him as the one who needs to change, wanting him to be "be more there, more present," help around the house more, and "not be depressed." He agrees he has had difficulty "getting out of my head," and not feeling totally present either at home with family or at work. He falls asleep easily, sometimes wakes overnight, often early am and unable to fall back sleep, so has been more tired during the day. Physical Exam Psychiatric Orientation: alert, oriented x 3 and cooperative Apperance: appeared stated age NAD Eye Contact: good eye contact Motor Behavior: steady gait and station and no abnormal motor movements Speech: normal rate/rhythm/volume of speech Affect: mood congruent with affect calm "hopeful" Thought Process: goal directed thought process and linear/logical thought process Thought Content: reality based without delusions Suicidal Thoughts: denies suicidal thoughts, denies suicidal plan and denies suicidal intent Homicidal Thoughts: denies homicidal thoughts Hallucinations: no auditory hallucinations, no visual hallucinations and no tactile hallucinations Cognition: recent memory grossly intact, remote memory grossly intact and attention grossly intact Estimated Intelligence: average estimated intelligence Insight: good insight Judgement: good judgement Vital Signs (Past 24 Hours) Last Vital Signs Temp 36.6 C 04/30/20 06:34 Pulse 80 04/30/20 06:35 Resp 16 04/30/20 06:34 BP 112/80 04/30/20 06:35 Pulse Ox 98 1018/20 14:20 Principal Diagnosis Major depressive disorder, recurrent, severe without psychosis. Generalized anxiety disorder. Psychiatric Data Patient was accepting of mental health treatment and participated in unit sha. Quickly reported resolution of suicidal ideation on admission. Abilify and sertraline were increased and well-tolerated. Patient accepting of intensive outpatient program referral and describes more positive future orientation at time of discharge. Day of Discharge Assessment At time of discharge patient describes feeling much more hopeful but admittedly a little anxious about discharge. Feels comfortable with his plan to stay with his parents temporarily. Describes absence of residual passive wish and convincingly denies intent or plan for self-harm or harm to others presently. He denies any concerns regarding side effects associated with psychotropic regimen changes made during his hospitalization. He readily agrees to follow-up with intensive outpatient, psychiatry, and therapy providers as scheduled. Will require a return to work note which will be provided. 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 Risk Factors Assessment Male: Yes : Yes Do You Have Access To A Gun?: Yes Health Problems: No Mental Health Diagnoses: Yes Substance Use Disorders: No Previous Attempt: Yes Previous Attempt; Highly Lethal: Yes Family History of Suicide: No Previous Psychiatric Hospitalization: Yes Hopelessness: Yes Smoker: No Protective Factors Assessment : Yes Responsible for Young Children: Yes Employed: Yes Supportive Family: Yes Good Rapport with Provider: Yes Tobacco Cessation at Discharge Tobacco Cessation Medication Prescribed at Discharge: Not Applicable/Non-Smoker Total Time Total Time Spent: Greater Than 30 Minutes Total Time Includes: Examination of the patient, Discharge Planning and Medication Reconciliation Discharge Data Lab Results 04/24/20 04/24/20 04/24/20 12:20 12:20 12:26 WBC 5.23 RBC 4.56 L Hgb 14.2 Hct 41.6 L MCV 91.2 MCH 31.1 MCHC 34.1 RDW Std Deviation 41.9 RDW Coeff of Chloé 12.5 Plt Count 258 MPV 10.8 H Immature Gran % (Auto) 0.2 Neut % (Auto) 65.7 Lymph % (Auto) 26.0 Haakon % (Auto) 6.7 Eos % (Auto) 0.6 Baso % (Auto) 0.8 Neut # (Auto) 3.44 Lymph # (Auto) 1.36 Haakon # (Auto) 0.35 Eos # (Auto) 0.03 Baso # (Auto) 0.04 Immature Gran # (Auto) 0.01 Sodium Potassium Chloride Carbon Dioxide Anion Gap BUN Creatinine Est Cr Clr Drug Dosing Est GFR ( Amer) Est GFR (Non-Af Amer) BUN/Creatinine Ratio Glucose Fasting Glucose Calcium Total Bilirubin AST ALT Alkaline Phosphatase Total Protein Albumin Globulin Albumin/Globulin Ratio Triglycerides Cholesterol LDL Cholesterol, Calc VLDL Cholesterol, Calc HDL Cholesterol Cholesterol/HDL Ratio TSH Urine Color Yellow Urine Appearance Clear Urine pH 5.5 Ur Specific [place] 1.019 Urine Protein Negative Urine Glucose (UA) Negative Urine Ketones Negative Urine Blood Negative Urine Nitrite Negative Urine Bilirubin Negative Urine Urobilinogen Negative Ur Leukocyte Esterase Negative Salicylates Urine Opiates Screen Neg Ur Methadone, Qual Neg Acetaminophen Urine Barbiturates Neg Ur Phencyclidine (PCP) Neg U Amphetamin/Meth Scrn Neg MDMA (Ecstasy) Screen Neg U Benzodiazepines Scrn Neg Ur Cocaine Metabolite Neg U Marijuana (THC) Screen Neg Ethyl Alcohol mg/dL COVID-19 Eval Order SARS-CoV-2, RNA, NAAT 04/24/20 04/24/20 04/24/20 12:26 12:26 12:26 WBC RBC Hgb Hct MCV MCH MCHC RDW Std Deviation RDW Coeff of Chloé Plt Count MPV Immature Gran % (Auto) Neut % (Auto) Lymph % (Auto) Haakon % (Auto) Eos % (Auto) Baso % (Auto) Neut # (Auto) Lymph # (Auto) Haakon # (Auto) Eos # (Auto) Baso # (Auto) Immature Gran # (Auto) Sodium 139 Potassium 3.9 Chloride 106 Carbon Dioxide 28 Anion Gap 5.0 BUN 14 Creatinine 0.98 Est Cr Clr Drug Dosing 110.0 Est GFR ( Amer) 111.3 Est GFR (Non-Af Amer) 96.1 BUN/Creatinine Ratio 14.2 Glucose 102 H Fasting Glucose Calcium 9.2 Total Bilirubin 1.2 H AST 16 ALT 21 Alkaline Phosphatase 65 Total Protein 7.5 Albumin 4.2 Globulin 3.3 Albumin/Globulin Ratio 1.3 Triglycerides Cholesterol LDL Cholesterol, Calc VLDL Cholesterol, Calc HDL Cholesterol Cholesterol/HDL Ratio TSH 0.732 Urine Color Urine Appearance Urine pH Ur Specific [place] Urine Protein Urine Glucose (UA) Urine Ketones Urine Blood Urine Nitrite Urine Bilirubin Urine Urobilinogen Ur Leukocyte Esterase Salicylates < 1.7 L Urine Opiates Screen Ur Methadone, Qual Acetaminophen < 2 L Urine Barbiturates Ur Phencyclidine (PCP) U Amphetamin/Meth Scrn MDMA (Ecstasy) Screen U Benzodiazepines Scrn Ur Cocaine Metabolite U Marijuana (THC) Screen Ethyl Alcohol mg/dL < 3.0 COVID-19 Eval Order SARS-CoV-2, RNA, NAAT 04/24/20 04/24/20 04/26/20 12:35 12:35 08:52 WBC RBC Hgb Hct MCV MCH MCHC RDW Std Deviation RDW Coeff of Chloé Plt Count MPV Immature Gran % (Auto) Neut % (Auto) Lymph % (Auto) Haakon % (Auto) Eos % (Auto) Baso % (Auto) Neut # (Auto) Lymph # (Auto) Haakon # (Auto) Eos # (Auto) Baso # (Auto) Immature Gran # (Auto) Sodium Potassium Chloride Carbon Dioxide Anion Gap BUN Creatinine Est Cr Clr Drug Dosing Est GFR ( Amer) Est GFR (Non-Af Amer) BUN/Creatinine Ratio Glucose Fasting Glucose 94 Calcium Total Bilirubin AST ALT Alkaline Phosphatase Total Protein Albumin Globulin Albumin/Globulin Ratio Triglycerides 159 H Cholesterol 175 LDL Cholesterol, Calc 97 VLDL Cholesterol, Calc 32 HDL Cholesterol 46 Cholesterol/HDL Ratio 4 TSH Urine Color Urine Appearance Urine pH Ur Specific [place] Urine Protein Urine Glucose (UA) Urine Ketones Urine Blood Urine Nitrite Urine Bilirubin Urine Urobilinogen Ur Leukocyte Esterase Salicylates Urine Opiates Screen Ur Methadone, Qual Acetaminophen Urine Barbiturates Ur Phencyclidine (PCP) U Amphetamin/Meth Scrn MDMA (Ecstasy) Screen U Benzodiazepines Scrn Ur Cocaine Metabolite U Marijuana (THC) Screen Ethyl Alcohol mg/dL COVID-19 Eval Order Covid19 [facility] SARS-CoV-2, RNA, NAAT NEGATIVE Hospital Course (1) Depression: 04/25 -reviewed diagnoses and treatment recommendations, including option to titrate sertraline and/or aripiprazole. We will start with maximizing his sertraline by increasing to 250 mg daily to target mood and anxiety symptoms. Consider further titration of aripiprazole; for now continue 7.5 mg daily. -Fasting labs for monitoring on an atypical antipsychotic: Performed during hospitalization in the spring, triglycerides 217 otherwise normal, and was scheduled for repeat labs this month, so will order them for tomorrow. -Schedule family meeting with his . -Coordinate care with his therapist and marital counselor. I have already informed Mireille of his hospitalization. -Encourage group attendance and participation. Work on healthy coping skills and discharge safety plan. Work on grounding techniques to assist him in remaining present, as this has been one of his primary struggles lately. -Sleep has been poor recently, side effects to trazodone, but hydroxyzine was helpful in the past so will offer 50 mg at bedtime as needed. 04/26 - Continue newly adjusted medication regimen - just increased to aripiprazole 7.5mg and sertraline 250mg this morning - Discussion held with , who states patient is not welcome home after discharge - Continue to encourage participation in group programming - Fasting labs obtained today and reviewed - triglycerides elevated at 159 (but reduced from most recent blood work), all other values WNL 04/27 -Continue current medications, groups, and therapy. Patient is working on an alternative discharge plan, will be going to stay with parents in the [place] area. He is willing for PHP programs there, looking into [facility]. -Family meeting with parents prior to discharge, and consider if it would be beneficial to have a meeting with , largely to focus on how they will communicate, coparent, and how he will communicate with his children in the short-term following discharge. 04/27 - Continue current medication regimen. - Patient reports that his depressive symptoms, including mood and motivation, have been improving gradually especially after setting up his aftercare plan and he is highly motivated and future oriented today. 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 04/28 - Continue current medication regimen- aripiprazole 7.5 mg and sertraline 250 mg. - Patient reports that his mood has been good, up to 6-8/10 from 08/17 before admission, for the past 2-3 days and he is ready to be discharged to focus more on his mood through scheduled PHP and continuous medication management in the outpatient setting. - His safety plan completed and reviewed. His aftercare plan set up. - His parents will be able to pick him up around 1 pm tomorrow. (2) Anxiety: 04/25 -increase SSRI as above, work on coping strategies Mental Health & Subst Abuse Tx Psychiatrist Name of Psychiatrist: Elia Corona Psychiatrist's Date of Appointment with Psychiatrist: 05/31/20 Time of Appointment with Psychiatrist: 2:10 p.m. Psychiatric Appointment Comment: Via Zoom Therapist Name of Therapist: Elia Erickson Kae Ernst Therapist's Date of Therapist Appointment: 06/09/20 Time of Therapist Appointment: 11:00 a.m. Therapy Appointment Comment: Via Zoom Post Discharge Appointments Primary Care Physician Name Of Family Doctor: Megan Harden Primary Care Provider Appointment Comment: Please follow up as needed Partial or Psych Rehab Name of Partial or Psych Rehab: [facility] Phone Number of Partial or Psych Rehab: [phone] Date of Appointment at Partial or Psych Rehab: 05/03/20 Time of Appointment at Partial or Psych Rehab: 1:30pm Partial or Psych Rehab Appointment Comment: [address] [facility] Smoking Cessation Counseling Tobacco Cessation Medication Prescribed at Discharge: Not Applicable/Non-Smoker Contact Information Discharge Discharge Address: [address] [place] [address] Discharge Plan Discharge Items Patient Disposition: Home - Self-Care Reason For Visit: MDD Discharge Diagnosis: MDD, rec, severe, without psychosis; SHELLEY Condition on Discharge: Good Activity: Resume your previous activity Non-emergency contact: Primary Care Provider and Psychiatrist Call non-emergency contact if: you have any medication questions and your symptoms worsen Follow-up/Referrals: Kavin Harden MD [Primary Care Provider] - Diet: Regular Addtl Attending Provider Instructions: Follow-up with intensive outpatient psychiatric treatment as well as your regular outpatient psychiatrist as scheduled. Pending Studies at Discharge: No Stand-Alone Forms: My Pin or Peg, Smoking Cessation Medications and DC Order Prescriptions: New aripiprazole [Abilify] 5 mg Tablet 7.5 mg PO QAM 30 Days Qty: 30 RF: 0 sertraline 100 mg Tablet 250 mg PO QAM Qty: 75 RF: 0 Discontinued sertraline 100 mg tablet 200 mg PO QAM RF: 0 aripiprazole 5 mg tablet 7.5 mg PO DAILY RF: 0 Discharge Orders: Discharge Order (Routine); Ordered 04/30/20 Ordered By: Kolton Collins Admission Data Admit Date/Time: 04/24/20 13:54 Attending Provider: Trinidad Corona Admit Provider: Raquel Hardy Primary Care Provider: Kavin Harden Other Interventions: PSY Interdisciplinary Discharge Planning Last Done: 04/29/20 13:04 Coding Level of Care Code 25858 D/C day mgmt > 30 min Diagnoses Depression F33.2 Active/Remission status: currently active Depression Type: major depressive disorder Major depression episode severity: severe Major depression recurrence: recurrent Psychotic features: without psychotic features Anxiety F41.9 Time Spent (min) 40
== END 2020-04-30 13:00 | disposition home or self-care (01) | DRG 885 ==
LOC: ED 11:53 → 3S 13:54